=== PATIENT | male | born 1955 | race Caucasian/White ===

== ENCOUNTER 2019-12-27 02:27 | Outpatient (CLI) | payer OTHER, SELFPAY ==
[2019-12-27 23:12] LABS: SARS-CoV-2 RNA PCR Negative
== END 2019-12-27 02:28 | disposition home or self-care (01) ==
LOC: ANHCOVIDDT 02:27
PROVIDERS: PCP Internal Medicine; Visit Provider Internal Medicine Gastroenterology
DX: Z01.812 Encounter for preprocedural laboratory examination (principal); Z20.828 Contact with and (suspected) exposure to other viral communicable diseases
CPT/HCPCS: 87635; C9803; U0003

== ENCOUNTER 2019-12-30 00:52 | Day surgery (SDC) | payer OTHER, SELFPAY ==
[2019-12-24 13:51] VITALS: BMI 34.2
[2019-12-30 07:16] VITALS: BP 132/85; PULSE 89; RESP 16; TEMP 36.6; O2SAT 95; BMI 33.5
[2019-12-30] MEDS: LACTATED RINGERS 1,000 ML 150 ML IV CONT (07:32)
[2019-12-30 07:40] LABS: Glucose Point of Care 142 (65-105)
--- NOTE | 2019-12-30 08:06 | WPDGICN ---
Assessment and Plan Assessment and plan (1) Encounter for screening colonoscopy: Code(s): Z12.11 - Encounter for screening for malignant neoplasm of colon Status: Acute Assessment and Plan: Patient in usual state of health presents for screening colonoscopy. Appears to be at average risk further recommendations will be given after colonoscopy. GI Consult Note Consult date/time: 12/30/19 08:06 HPI: Javier Alvarez is a 64 year old male Seen in evaluation at the request of Dr. Luisito Bolton. Patient presents for neoplasia screening colonoscopy. Patient states that his current weight appetite bowel movements are normal. Patient denies any abdominal pain. He denies any blood in his stools. Family history is noncontributory. [facility] Family History Family History (Updated 07/04/17 @ 10:13 by DOCTOR UNKNOWN) Mother Diabetes mellitus Acute myocardial infarction, Onset Age: 55 Father Family history of cardiovascular disease Cerebrovascular accident Family history of Alzheimer's disease Other Hypertension Social History Social History Smoking status: Former smoker Tobacco type: cigarettes Smoking end date: 03/20/83 Alcohol intake: current Alcohol use details: HOLIDAYS Substance use: never Substance use type: does not use Living arrangements: with family Spiritual care concerns: No Meds Home Medications and Allergies Home Medications Medication Instructions Recorded Confirmed Type atorvastatin 40 mg PO DAILY 12/24/19 12/24/19 History hydrocodone-acetaminophen 1 tablet PO PRN PRN 12/24/19 12/24/19 History ketorolac 10 mg PO PRN PRN 12/24/19 12/24/19 History metformin 1,000 mg PO BID 12/24/19 12/24/19 History nitroglycerin 0.4 mg SUBLINGUAL PRN PRN 12/24/19 12/24/19 History omeprazole 20 mg PO DAILY 12/24/19 12/24/19 History semaglutide [Ozempic] 1 mg SUBCUT WEEKLY 12/24/19 12/24/19 History aspirin [Adult Low Dose Aspirin] 81 mg PO DAILY 12/30/19 12/30/19 History Allergies Allergy/AdvReac Type Severity Reaction Status Date / Time ibuprofen Allergy Unknown Gastrointestinal Verified 12/30/19 07:15 Upset Vital Signs Vital Signs - 24 hr 12/30/19 07:16 Temperature 97.8 F Pulse Rate 89 Respiratory Rate 16 Blood Pressure 132/85 Pulse Oximetry 95 Exam Narrative: Exam Narrative: Physical exam reveals patient to be alert. Vital signs stable. HEENT exam unremarkable. Lungs are clear to auscultation and percussion. Heart is without murmur or extra sounds. Abdominal exam bowel sounds are present soft nontender with no organomegaly. Digital external Rectal exam is normal.
--- NOTE | 2019-12-30 08:17 | WPDANESEPPF ---
Anes - Initial Pre Proc Eval Procedure: Operation Date: 12/30/19 08:30 Proposed Procedures p Screening Colonoscopy - Malachi Kim MD Date/Time: 12/30/19 08:17 Surgeon: Malachi Kim MD Pre Op Diagnosis: Neoplasm Screening Patient Data Age: 64 Gender: M Height: 5 ft 8 in Weight: 100 kg Last Vital Signs Temp 36.6 C 12/30/19 07:16 Pulse 89 12/30/19 07:16 Resp 16 12/30/19 07:16 BP 132/85 12/30/19 07:16 Pulse Ox 95 12/30/19 07:16 Allergies Allergy/AdvReac Type Severity Reaction Status Date / Time ibuprofen Allergy Unknown Gastrointestinal Verified 12/30/19 07:15 Upset Home Medications Medication Instructions Recorded Confirmed Type atorvastatin 40 mg PO DAILY 12/24/19 12/24/19 History hydrocodone-acetaminophen 1 tablet PO PRN PRN 12/24/19 12/24/19 History ketorolac 10 mg PO PRN PRN 12/24/19 12/24/19 History metformin 1,000 mg PO BID 12/24/19 12/24/19 History nitroglycerin 0.4 mg SUBLINGUAL PRN PRN 12/24/19 12/24/19 History omeprazole 20 mg PO DAILY 12/24/19 12/24/19 History semaglutide [Ozempic] 1 mg SUBCUT WEEKLY 12/24/19 12/24/19 History aspirin [Adult Low Dose Aspirin] 81 mg PO DAILY 12/30/19 12/30/19 History Laboratory Tests 12/30/19 07:28 POC Capillary Glucose 142 mg/dl H mg/dl (65-105) Patient hx anesthesia problems: none Family hx anesthesia problems: none [facility] Past Medical History Medical History (Updated 12/30/19 @ 08:18 by Rihcard Hernandez MD) CAD (coronary artery disease) Chronic pain Diabetes H/O acute myocardial infarction RE (obstructive sleep apnea) Family History Family History Mother Diabetes mellitus Acute myocardial infarction, Onset Age: 55 Father Family history of cardiovascular disease Cerebrovascular accident Family history of Alzheimer's disease Other Hypertension Social History Social History Smoking status: Former smoker Tobacco type: cigarettes Smoking end date: 03/20/83 Alcohol intake: current Alcohol use details: HOLIDAYS Substance use: never Substance use type: does not use Living arrangements: with family Spiritual care concerns: No Anes - Eval Final PreProcedure Day of Procedure 12/30/19 08:17 Patient weight: obese Heart: regular rate and rhythm Lungs: clear to auscultation Airway: Mallampati scale class II Neurological: alert and oriented Last oral intake: >/= 8 hours ASA classification: III Emergent: no Anesthetic plan: proceed Anesthesia type and monitoring: general GIVS and standard monitoring Informed Consent: The patient's anesthetic plan and its attendant risks and benefits were discussed with the patient/family/POA. Questions were solicited and answers provided to the satisfaction of the patient/family/POA.
--- NOTE | 2019-12-30 08:37 | WPDGICN ---
GI Consult Note Consult date/time: 12/30/19 08:37 HPI: Javier Alvarez is a 64 year old male Seen in evaluation at the request of Dr. Luisito Bolton. Patient presents for screening colonoscopy. Patient states his current weight appetite bowel movements are normal PMFSH Past Medical History Medical History (Updated 12/30/19 @ 08:18 by Richard Hernandez MD) CAD (coronary artery disease) Chronic pain Diabetes H/O acute myocardial infarction RE (obstructive sleep apnea) Family History Family History Mother Diabetes mellitus Acute myocardial infarction, Onset Age: 55 Father Family history of cardiovascular disease Cerebrovascular accident Family history of Alzheimer's disease Other Hypertension Social History Social History Smoking status: Former smoker Tobacco type: cigarettes Smoking end date: 03/20/83 Alcohol intake: current Alcohol use details: H[place]YS Substance use: never Substance use type: does not use Living arrangements: with family Spiritual care concerns: No Meds Home Medications and Allergies Home Medications Medication Instructions Recorded Confirmed Type atorvastatin 40 mg PO DAILY 12/24/19 12/24/19 History hydrocodone-acetaminophen 1 tablet PO PRN PRN 12/24/19 12/24/19 History ketorolac 10 mg PO PRN PRN 12/24/19 12/24/19 History metformin 1,000 mg PO BID 12/24/19 12/24/19 History nitroglycerin 0.4 mg SUBLINGUAL PRN PRN 12/24/19 12/24/19 History omeprazole 20 mg PO DAILY 12/24/19 12/24/19 History semaglutide [Ozempic] 1 mg SUBCUT WEEKLY 12/24/19 12/24/19 History aspirin [Adult Low Dose Aspirin] 81 mg PO DAILY 12/30/19 12/30/19 History Allergies Allergy/AdvReac Type Severity Reaction Status Date / Time ibuprofen Allergy Unknown Gastrointestinal Verified 12/30/19 07:15 Upset Vital Signs Vital Signs - 24 hr 12/30/19 07:16 Temperature 97.8 F Pulse Rate 89 Respiratory Rate 16 Blood Pressure 132/85 Pulse Oximetry 95
[2019-12-30 09:03] VITALS: BP 111/70; PULSE 78; RESP 16; O2SAT 95
[2019-12-30 09:13] VITALS: BP 105/75; PULSE 78; RESP 20; O2SAT 95
== END 2019-12-30 09:30 | disposition home or self-care (01) ==
PROVIDERS: PCP Internal Medicine; Visit Provider Internal Medicine Gastroenterology
PROC: 0DJD8ZZ Inspection of Lower Intestinal Tract, Via Natural or Artificial Opening Endoscopic (ICD-10-PCS; CPT 45378; principal; 2019-12-30 08:30)
DX: Z12.11 Encounter for screening for malignant neoplasm of colon (principal); D12.3 Benign neoplasm of transverse colon; D12.4 Benign neoplasm of descending colon; K57.30 Diverticulosis of large intestine without perforation or abscess without bleeding; K64.8 Other hemorrhoids; I25.10 Atherosclerotic heart disease of native coronary artery without angina pectoris; E11.9 Type 2 diabetes mellitus without complications; G47.33 Obstructive sleep apnea (adult) (pediatric); I25.2 Old myocardial infarction; G89.29 Other chronic pain; Z87.891 Personal history of nicotine dependence; Z79.84 Long term (current) use of oral hypoglycemic drugs; Z79.82 Long term (current) use of aspirin; E66.9 Obesity, unspecified; Z68.33 Body mass index [BMI] 33.0-33.9, adult
CPT/HCPCS: 45385; 88305; J2704; J7120

== ENCOUNTER 2020-07-04 06:19 | Emergency (ER) | payer OTHER, SELFPAY ==
--- NOTE | ~2020-07-04 | CT_ITS ---
EXAMINATION: CT abdomen pelvis w con DATE: 07/04/2020 07:56 INDICATION: Abdominal pain TECHNIQUE: Computed tomography (CT) of the abdomen and pelvis was performed with 100 mL Omnipaque-350 intravenous contrast. Automated exposure control and iterative reconstruction technique were employe d. The dose-length product was 1034.19 mGy-cm. COMPARISON: None FINDINGS: Mild dependent atelectasis in the bilateral lower lobes. Heart size normal. No pericardial or pleural effusion. Atherosclerotic coronary artery calcifications. There are few hepatic splenic calcificatio ns consistent with old granulomatous disease. Gallbladder, pancreas, bilateral adrenal glands and rig ht kidney are normal. 4-5 mm stone in the mid left ureter resulting in mild left hydroureteronephrosi s and asymmetric moderate left perinephric stranding. There is moderate colonic diverticulosis with a sigmoid predominance. There is no adjacent inflammatory change to suggest diverticulitis. No bowel o bstruction. Small bilateral fat-containing inguinal hernias, left larger than right. Bladder is santhosh l. Mild prostatomegaly. No free intraperitoneal gas or fluid. No pathologically enlarged abdominal or pelvic lymphadenopathy. Postoperative changes at the right groin likely related to prior vascular ac cess. Mild upper lumbar levocurvature. Moderate thoracolumbar spondylosis. Moderate right and mild le ft hip osteoarthritis. IMPRESSION: 1. At least partially obstructing 4-5 mm left ureteral stone with mild left hydroureteronephrosis. Reviewed, dictated and finalized at location A. IMPRESSION: 1. At least partially obstructing 4-5 mm left ureteral stone with mild left hyd roureteronephrosis.
[2020-07-04 06:23] VITALS: BP 171/82; PULSE 62; RESP 20; TEMP 36.5; O2SAT 100
[2020-07-04 06:39] VITALS: BP 138/87; PULSE 89; RESP 18; TEMP 36.5; O2SAT 97
--- NOTE | 2020-07-04 06:41 | ED.GENADULT ---
HPI - General Adult General Chief complaint: Abdominal Pain <Tripp Alford MD - Last Filed: 07/04/20 06:46> Stated complaint: stomach pain <Tripp Alford MD - Last Filed: 07/04/20 06:46> Time Seen by Provider: 07/04/20 06:46 <Tripp Alford MD - Last Filed: 07/04/20 06:46> History of Present Illness HPI narrative: Patient is a 64-year-old gentleman who presents the emergency department with chief complaint of abdominal pain. Patient reports that around 2:30 in the morning he started having pain states he is also had episodes of nausea and vomiting with this as well. Patient states that it is worse in the lower quadrants of his abdomen. Patient reports that he has vomited around 5 times <Tripp Alford MD - Last Filed: 07/04/20 06:46> Related Data Home medications: Home Medications Medication Instructions Recorded Confirmed atorvastatin 40 mg PO DAILY 12/24/19 12/24/19 hydrocodone-acetaminophen 1 tablet PO PRN PRN 12/24/19 12/24/19 ketorolac 10 mg PO PRN PRN 12/24/19 12/24/19 metformin 1,000 mg PO BID 12/24/19 12/24/19 nitroglycerin 0.4 mg SUBLINGUAL PRN PRN 12/24/19 12/24/19 omeprazole 20 mg PO DAILY 12/24/19 12/24/19 semaglutide [Ozempic] 1 mg SUBCUT WEEKLY 12/24/19 12/24/19 aspirin [Adult Low Dose Aspirin] 81 mg PO DAILY 12/30/19 12/30/19 <Tripp Alford MD - Last Filed: 07/04/20 06:46> Allergies/adverse reactions: Allergies Allergy/AdvReac Type Severity Reaction Status Date / Time ibuprofen Allergy Unknown Gastrointestinal Verified 12/30/19 07:15 Upset <Tripp Alford MD - Last Filed: 07/04/20 06:46> Review of Systems Review of Systems: Narrative: A 10 system review of systems was completed on the patient and is negative except for what is stated in the HPI. Nursing and ancillary documentation was reviewed. <Tripp Alford MD - Last Filed: 07/04/20 06:46> PMFSH Past Medical History Medical History: Medical History CAD (coronary artery disease) Chronic pain Diabetes H/O acute myocardial infarction RE (obstructive sleep apnea) <Tripp Alford MD - Last Filed: 07/04/20 06:46> Family History Family History: Family History Mother Diabetes mellitus Acute myocardial infarction, Onset Age: 55 Father Family history of cardiovascular disease Cerebrovascular accident Family history of Alzheimer's disease Other Hypertension <Tripp Alford MD - Last Filed: 07/04/20 06:46> Social History Social History: Social History Smoking status: Former smoker Tobacco type: cigarettes Smoking end date: 03/20/83 Alcohol intake: current Substance use: never Substance use type: does not use Spiritual care concerns: No <Tripp Alford MD - Last Filed: 07/04/20 06:46> Exam Narrative: Exam Narrative: GENERAL: Well-appearing, well-nourished, and in no acute distress. HEAD: Normocephalic, atraumatic. EYES: PERRLA and EOMI. ENT: Nares clear, no rhinorrhea or epistaxis. Mucous membranes moist. NECK: Supple. CHEST: Clear to auscultation. No respiratory distress. HEART: Regular rate and rhythm. No murmur heard. Normal peripheral pulses. ABDOMEN: Soft, tender to palpation worse in the left lower quadrant, nondistended, normal active bowel sounds. EXTREMITIES: Normal range of motion. No edema. SKIN: Warm, dry, no rash. NEURO: No focal deficits. Alert and oriented x3. PSYCH: Normal mood and affect. <Tripp Alford MD - Last Filed: 07/04/20 06:46> Course Vital Signs Vital signs: Vital Signs Temperature 36.5 C 07/04/20 06:23 Pulse Rate 62 07/04/20 06:23 Respiratory Rate 20 07/04/20 06:23 Blood Pressure 171/82 H 06/18
[2020-07-04] MEDS: SODIUM CHLORIDE 0.9% IV 1,000 ML 999 ML IV CONT (06:47)
[2020-07-04] MEDS: MORPHINE SULFATE (*CRX) 4 MG/ML INJ IV PUSH ×2 (06:47→08:52)
[2020-07-04] MEDS: ONDANSETRON INJ 4 MG/2 ML VIAL IV PUSH (06:58)
[2020-07-04 07:02] LABS: Basophils Percent Auto 0.2 % (0.2-1.2); Eosinophils Percent Auto 0.1 % (0-4.4); Hematocrit 48.4 % (42.0-52.0); Hemoglobin 16.6 g/dL (14.0-18.0); Immature Granulocyte Absolute 0.05 K/mm3 (0.00-0.031); Immature Granulocyte Percent A 0.6 % (0-0.5); Lymphocytes Absolute Auto 1.07 K/mm3 (0.9-3.2); Lymphocytes Percent Auto 12.2 % (18.3-44.2); Mean Corpuscular HGB Conc 34.3 g/dl (32-36); Mean Corpuscular Hemoglobin 29.9 pg (26-34); Mean Corpuscular Volume 87.2 fl (80-100); Mean Platelet Volume 8.8 fl (7.4-10.4); Monocytes Absolute Auto 0.4 K/mm3 (0.1-0.6); Neutrophils Absolute Auto 7.2 K/mm3 (1.3-6.7); Neutrophils Percent Auto 81.9 % (45.5-73.1); Platelet Count Result 233 k/mm3 (150-375); Red Blood Count 5.55 M/mm3 (4.6-6.20); Red Cell Distribution Width 12.9 % (11.5-14.5); White Blood Count 8.8 K/mm3 (4.5-10.0)
[2020-07-04 07:10] LABS: Lactic Acid Reflex 2.6 mmol/L (0.7-2.1)
[2020-07-04 07:11] LABS: Alanine Aminotransferase 33 U/L (4-50); Albumin Level 4.4 g/dL (3.5-5.1); Alkaline Phosphatase 64 U/L (38-126); Anion Gap 11 mmol/L (8-16); Aspartate Amino Transferase 34 U/L (17-59); Bilirubin,Total 0.8 mg/dL (0.2-1.3); Blood Urea Nitrogen 16 mg/dL (9-20); Calcium 9.4 mg/dL (8.4-10.2); Carbon Dioxide 22 mmol/L (22-30); Chloride 104 mmol/L (98-107); Estimated CRCL calculation 85 ml/min; Estimated Glomerular Filt Rate > 60; Glucose 252 mg/dL (75-110); Lipase 88 U/L (23-300); Sodium 137 mmol/L (137-145)
[2020-07-04 07:12] LABS: INR 0.9; Prothrombin Time 12.9 Seconds (11.1-14.7)
--- NOTE | 2020-07-04 07:25 | PC.NURSE ---
PT STATES UNABLE TO VOID AT THIS TIME. INFORMED NEED FOR SAMPLE. VERBALIZES UNDERSTANDING. WILL CONTINUE TO MONITOR
[2020-07-04 08:41] LABS: Add Urine Microscopic? YES; Appearance Urine Cloudy (Clear); Bilirubin Urine Negative (Negative); Blood Urine 3+ (Negative); Color Urine Yellow (Yellow); Glucose Urine UA 3+ mg/dL (Negative); Ketones Urine 1+ mg/dL (Negative); Leukocyte Esterase Ur Negative LEU/UL (Negative); Mucus Urine Rare /lpf; Nitrate Urine Negative (Negative); Protein Urine 1+ mg/dL (Negative); RBC Urine >75 /hpf (0-2); Specific Grav Ur 1.028 (1.001-1.035); Squamous Epithelial Cell Urine Rare /hpf (Few); Urobilinogen Urine Negative mg/dL (<2.0); WBC Urine 0-3 /hpf
[2020-07-04 09:59] LABS: Reflex Lactic Acid Yes or No Add Lactic
[2020-07-04] MEDS: TAMSULOSIN HCL 0.4 MG CAPSULE PO (10:08)
[2020-07-04] MEDS: KETOROLAC 15 MG/ML VIAL (*BKC) IV PUSH (10:09)
[2020-07-04 10:20] VITALS: BP 154/64; PULSE 64; RESP 20; O2SAT 100
== END 2020-07-04 10:20 | disposition home or self-care (01) ==
PROVIDERS: Emergency Medicine; Emergency Provider Emergency Medicine; PCP Internal Medicine
DX: N13.2 Hydronephrosis with renal and ureteral calculous obstruction (principal); Z79.82 Long term (current) use of aspirin; I25.10 Atherosclerotic heart disease of native coronary artery without angina pectoris; E11.9 Type 2 diabetes mellitus without complications; I25.2 Old myocardial infarction; G47.33 Obstructive sleep apnea (adult) (pediatric); Z87.891 Personal history of nicotine dependence; Z79.84 Long term (current) use of oral hypoglycemic drugs
CPT/HCPCS: 36415; 74177; 80053; 81001; 83605; 83690; 85025; 85610; 85730; 96361; 96374; 96375; 96376; 99284; A9270; J1885; J2270; J2405; J7030; Q9967

== ENCOUNTER 2022-04-14 17:27 | Outpatient (CLI) | payer MEDICARE, OTHER, SELFPAY ==
--- NOTE | ~2022-04-14 | XR_ITS ---
XR chest 2V 04/14/2022 17:44 Indication: Leg pain Procedure: 2 view chest Comparison: 05/20/2017 Findings: Cardiomegaly. No focal air space disease, pulmonary edema, pleural effusion or suspected pn eumothorax. Calcified granuloma right midlung. There is diffuse idiopathic skeletal hyperostosis (DIS H) of the thoracic spine. There is thoracic scoliosis. Impression: 1: No acute cardiopulmonary disease. Reviewed, dictated and finalized at location A. AGENT Impression: 1: No acute cardiopulmonary disease.
== END 2022-04-14 17:28 | disposition home or self-care (01) ==
PROVIDERS: PCP Physician Assistant Medical; Visit Provider Physician Assistant Medical
DX: R61 Generalized hyperhidrosis (principal)
CPT/HCPCS: 71046

== ENCOUNTER 2022-04-25 00:17 | Day surgery (SDC) | payer MEDICARE, OTHER, SELFPAY ==
[2022-04-07 14:34] VITALS: BMI 31.2
[2022-04-25 09:47] VITALS: BP 132/83; PULSE 84; RESP 18; TEMP 36.2; O2SAT 96
[2022-04-25] MEDS: LACTATED RINGERS 1,000 ML 150 ML IV CONT (09:59)
[2022-04-25 10:07] LABS: Glucose Point of Care 214 mg/dl (65-105)
--- NOTE | 2022-04-25 10:12 | PM.HPGS ---
History of Present Illness History of Present Illness Consent: Risks, benefits, and alternatives have been discussed and questions answered. Patient agrees to proceed with procedure. Chief complaint: neoplasm screening Narrative: aJvier Alvarez is a 66 year old male Presents for screening colonoscopy. Patient has a prior history of a large colon polyp removed from the colon 2019. He presents today for surveillance colonoscopy. Patient's current weight appetite and bowel movements are normal. Patient denies abdominal pain. He has had no bleeding. Family history noncontributory. Review of Systems Review of Systems: Review of systems noncontributory. ON LICENSE OF [facility] Past Medical History Medical History (Updated 03/31/22 @ 17:14 by Olesya Molina PA-C) Appendicitis CAD (coronary artery disease) Chronic pain Chronic pain of right knee Diabetes H/O acute myocardial infarction History of acute myocardial infarction of anterolateral wall RE (obstructive sleep apnea) Vitamin B12 deficiency Surgical History Surgical History (Updated 03/31/22 @ 14:01 by Blanquita Mcdaniel MA) H/O knee surgery Hx of appendectomy Family History Family History Mother Diabetes mellitus Acute myocardial infarction, Onset Age: 55 Father Family history of cardiovascular disease Cerebrovascular accident Family history of Alzheimer's disease Other Hypertension Social History Social History (Updated 03/31/22 @ 13:54 by Blanquita Mcdaniel MA) Smoking packs per day: 2 Smoking cigarettes per day: 40.0 Years smoked: 12 Smoking pack-years: 24.00 Smoking status: Former smoker Tobacco type: cigarettes Smoking end date: 03/20/83 Alcohol intake: current Alcohol use details: [place]IDAYS - rarely Substance use: never Substance use type: does not use Lack of Transportation: YES Lack of Food: Never True Current Housing: I Have Housing Concerned About Future Housing: No Difficulty Paying Gas/Electric Bills: No Difficulty Paying for Meds: No Currently Unemployed: No Difficulty w/ Childcare or Family Care: No Living arrangements: with family Occupation/Education: occupation Gender identity (if verbalized by the patient): Male Spiritual care concerns: No Meds Home Medications and Allergies Home Medications Medication Instructions Recorded Confirmed Type nitroglycerin 0.4 mg sublingual 0.4 mg sublingual PRN PRN Chest 12/24/19 04/07/22 History tablet Pain aspirin 81 mg tablet 81 mg PO DAILY 12/30/19 04/07/22 History metformin 500 mg tablet,extended 1,000 mg PO BID #360 tabs 03/31/22 04/07/22 Rx release 24 hr omeprazole 20 mg capsule,delayed 20 mg PO DAILY #90 caps 03/31/22 04/07/22 Rx release hydrocodone 5 mg-acetaminophen 325 1 tablet PO Q4H PRN Pain #45 tabs 04/01/22 04/07/22 Rx mg tablet ketorolac 10 mg tablet 10 mg PO BID PRN pain #20 tabs 04/06/22 04/07/22 Rx Lactobacills gasseri-Bifidobac 1 cap PO DAILY 04/07/22 04/07/22 History bifidum,longum 1.5 billion cell capsule ([employer]) atorvastatin 40 mg tablet 40 mg PO QPM 04/07/22 04/07/22 History glimepiride 1 mg tablet 1 mg PO BID #180 tabs 04/15/22 04/25/22 Rx Allergies Allergy/AdvReac Type Severity Reaction Status Date / Time No Known Allergies Allergy Verified 04/25/22 09:44 Vital Signs Vital Signs - 24 hr 04/25/22 09:47 Temperature 97.1 F L Pulse Rate 84 Respiratory Rate 18 Blood Pressure 132/83 Pulse Oximetry 96 Oxygen Delivery Room Air Exam Narrative: Physical exam reveals patient to be alert. Vital signs stable. HEENT exam is unremarkable. Patient is anicteric. Lungs are clear to auscultation and percussion. Heart is without murmur or extra sounds. Abdomen bowel sounds present soft nontender with no organomegaly. Digital external rectal exam is normal. Assessment and Plan Assessment and plan (1) E
--- NOTE | 2022-04-25 10:16 | WPDANESEPPF ---
Anes - Initial Pre Proc Eval Procedure: Operation Date: 04/25/22 11:00 Proposed Procedures p Screening Colonoscopy - Malachi Kim MD Date/Time: 04/25/22 10:16 Surgeon: Malachi Kim MD Pre Op Diagnosis: neoplasm screening Patient Data Age: 66 Gender: M Height: 1.75 m Weight: 95.7 kg Last Vital Signs Temp 36.2 C L 04/25/22 09:47 Pulse 84 04/25/22 09:47 Resp 18 04/25/22 09:47 BP 132/83 04/25/22 09:47 Pulse Ox 96 04/25/22 09:47 O2 Del Method Room Air 04/25/22 09:47 Allergies Allergy/AdvReac Type Severity Reaction Status Date / Time No Known Allergies Allergy Verified 04/25/22 09:44 Home Medications Medication Instructions Recorded Confirmed Type nitroglycerin 0.4 mg sublingual 0.4 mg sublingual PRN PRN Chest 12/24/19 04/07/22 History tablet Pain aspirin 81 mg tablet 81 mg PO DAILY 12/30/19 04/07/22 History metformin 500 mg tablet,extended 1,000 mg PO BID #360 tabs 03/31/22 04/07/22 Rx release 24 hr omeprazole 20 mg capsule,delayed 20 mg PO DAILY #90 caps 03/31/22 04/07/22 Rx release hydrocodone 5 mg-acetaminophen 325 1 tablet PO Q4H PRN Pain #45 tabs 04/01/22 04/07/22 Rx mg tablet ketorolac 10 mg tablet 10 mg PO BID PRN pain #20 tabs 04/06/22 04/07/22 Rx Lactobacills gasseri-Bifidobac 1 cap PO DAILY 04/07/22 04/07/22 History bifidum,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 [facility] Past Medical History Medical History Appendicitis CAD (coronary artery disease) Chronic pain Chronic pain of right knee Diabetes H/O acute myocardial infarction History of acute myocardial infarction of anterolateral wall RE (obstructive sleep apnea) Vitamin B12 deficiency Surgical History Surgical History H/O knee surgery Hx of appendectomy Family History Family History Mother Diabetes mellitus Acute myocardial infarction, Onset Age: 55 Father Family history of cardiovascular disease Cerebrovascular accident Family history of Alzheimer's disease Other Hypertension Social History Social History Smoking packs per day: 2 Smoking cigarettes per day: 40.0 Years smoked: 12 Smoking pack-years: 24.00 Smoking status: Former smoker Tobacco type: cigarettes Smoking end date: 03/20/83 Alcohol intake: current Alcohol use details: [place] - rarely Substance use: never Substance use type: does not use Lack of Transportation: YES Lack of Food: Never True Current Housing: I Have Housing Concerned About Future Housing: No Difficulty Paying Gas/Electric Bills: No Difficulty Paying for Meds: No Currently Unemployed: No Difficulty w/ Childcare or Family Care: No Living arrangements: with family Occupation/Education: occupation Gender identity (if verbalized by the patient): Male Spiritual care concerns: No Anes - Eval Final PreProcedure Day of Procedure 04/25/22 10:16 Patient weight: obese Heart: regular rate and rhythm Lungs: clear to auscultation Airway: Mallampati scale class II Neurological: alert and oriented Last oral intake: >/= 8 hours ASA classification: III Emergent: no Anesthetic plan: proceed Anesthesia type and monitoring: general GIVS and standard monitoring Results Review: All pre-operative results and documents have been reviewed as p
[2022-04-25] MEDS: SIMETHICONE ORAL SUSPENSION 20 MG/0.3 ML 30 ML BOTTLE 0.6 ML IRRIGATION (10:55)
[2022-04-25 11:02] VITALS: BP 113/81; PULSE 72; RESP 20; O2SAT 95
[2022-04-25 11:12] VITALS: BP 117/77; PULSE 72; RESP 20; O2SAT 95
[2022-04-25 11:22] VITALS: BP 117/74; PULSE 71; RESP 21; O2SAT 95
== END 2022-04-25 11:29 | disposition home or self-care (01) ==
PROVIDERS: PCP Physician Assistant Medical; Visit Provider Internal Medicine Gastroenterology
PROC: 0DJD8ZZ Inspection of Lower Intestinal Tract, Via Natural or Artificial Opening Endoscopic (ICD-10-PCS; CPT 45378; principal; 2022-04-25 11:00)
DX: Z12.11 Encounter for screening for malignant neoplasm of colon (principal); D12.5 Benign neoplasm of sigmoid colon; K64.8 Other hemorrhoids; K57.30 Diverticulosis of large intestine without perforation or abscess without bleeding; I25.10 Atherosclerotic heart disease of native coronary artery without angina pectoris; E11.9 Type 2 diabetes mellitus without complications; G47.33 Obstructive sleep apnea (adult) (pediatric); I25.2 Old myocardial infarction; G89.29 Other chronic pain; Z79.891 Long term (current) use of opiate analgesic; Z87.891 Personal history of nicotine dependence; E66.9 Obesity, unspecified; Z68.31 Body mass index [BMI] 31.0-31.9, adult; Z79.82 Long term (current) use of aspirin; Z79.84 Long term (current) use of oral hypoglycemic drugs
CPT/HCPCS: 45385; 82948; 88305; J2704; J7120

== ENCOUNTER 2024-04-09 06:07 | Day surgery (SDC) | payer MEDICARE, OTHER, SELFPAY ==
[2024-04-09] VITALS (11 sets, daily range): BP systolic 86–157; BP diastolic 62–98; PULSE 66–96; RESP 14–20; TEMP 36.3–36.5; O2SAT 96–100
--- NOTE | ~2024-04-09 | XR_ITS ---
EXAMINATION: XR retrograde pyelo w/stent LT DATE: 04/09/2024 16:24 INDICATION: Left ureteral stone extraction TECHNIQUE: 4 fluoroscopic images of the abdomen and pelvis were obtained during procedure performed jeanna Syed. Radiologist was not present for the imaging or procedure. The amount of fluoroscopy jaymie e used during this procedure was 0.7 minutes. COMPARISON: CT dated 04/09/2024 FINDINGS: No stones project over the region of the left kidney on the brush material preparer image. Subsequent image demonstrate s a wire advanced into the left ureter with persistent stone alongside the wire at the left ureterove sicular junction. Subsequent images demonstrate placement of a left intraureteral stent with proximal loop in the left renal pelvis and in the bladder. There is a small amount of contrast material in th e mildly dilated left renal collecting system. The stone is no longer visualized on the final images and has likely been extracted. IMPRESSION: 1. Left intraureteral stent placement in expected position post likely extraction of a stone at the l eft ureterovesicular junction. Correlate with procedure note for further detail. Reviewed, dictated and finalized at location A. WARE RELIABILITY ENGINEER IMPRESSION: 1. Left intraureteral stent placement in expected position post likely extracti on of a stone at the left ureterovesicular junction. Correlate with procedure n ote for further detail.
--- NOTE | ~2024-04-09 | CT_ITS ---
EXAMINATION: CT abdomen pelvis wo con DATE: 04/09/2024 08:30 INDICATION: Flank pain. Urinary symptoms. TECHNIQUE: Computed tomography (CT) of the abdomen and pelvis was performed without intravenous contr ast. Automated exposure control and iterative reconstruction technique were employed. The dose-length product was 442.40 mGy-cm. COMPARISON: CT abdomen and pelvis 07/04/2020 FINDINGS: The visualized portions of the lung bases demonstrate mild atelectasis. Calcified right brent g nodules and calcified right hilar lymph nodes are consistent with old granulomatous disease. No ple ural effusion. The heart size is normal. There are coronary artery calcifications. No pericardial eff usion. Calcifications in the liver and spleen are consistent with old granulomatous disease. The gall bladder, pancreas, adrenal glands, and right kidney are normal. There is moderate left hydronephrosis and hydroureter. There is an 8 mm stone at left ureterovesicular junction. There is edema in the lef t perinephric space. The prostate is moderately enlarged. There is diverticulosis of the colon withou t evidence of diverticulitis. There are no dilated loops of bowel. The appendix is not visualized. Th ere are no pathologically enlarged lymph nodes. There is no free intraperitoneal fluid. There are leonidas ateral inguinal hernias containing fat. There is moderate thoracic and lumbar spondylosis. IMPRESSION: 1. 8 mm stone at left ureterovesicular junction with moderate left hydronephrosis and hydroureter. Reviewed, dictated and finalized at location B. ATING SCREED OPERATOR IMPRESSION: 1. 8 mm stone at left ureterovesicular junction with moderate left hydronephros is and hydroureter.
[2024-04-09] MEDS: KETOROLAC 15 MG/ML VIAL (*BKC) IV PUSH ×2 (06:22→16:20)
[2024-04-09] MEDS: ONDANSETRON INJ 4 MG/2 ML VIAL IV PUSH ×2 (06:23→15:20)
[2024-04-09] MEDS: SODIUM CHLORIDE 0.9% IV 1,000 ML 999 ML IV CONT (06:23)
--- NOTE | 2024-04-09 06:26 | PC.NURSE ---
Pt attempting to give urine sample at this time, pt given urinal and states he will hit call light when he is able to provide a sample
--- NOTE | 2024-04-09 06:29 | ED.GENADULT ---
HPI - General Adult General Chief complaint: Urogenital-Male Stated complaint: I think I am trying to pass a kidney stone Time Seen by Provider: 04/09/24 06:14 History of Present Illness HPI narrative: Patient is 68-year-old male who presents to the emergency department this evening complaining of left-sided groin pain radiating to his left flank. Patient states that last night before he went to bed he had a headache which is not unusual for him as he does get migraines and he has some migraine medications. Patient states that he took that medication which resolved his headache and he went to sleep when he woke up this morning he noticed the pain. Patient admits that he has had kidney stones in the past and this feels similar. States that when he tries to urinate he feels as though he is and able to fully empty his bladder, and is only able to pee a small amount at a time. Denies any nausea or vomiting. No additional symptoms or concerns at this time. Related Data Home Medications ?Medication ?Instructions ?Recorded ?Confirmed ?Last Taken ?Type nitroglycerin 0.4 mg sublingual 0.4 mg sublingual PRN PRN Chest 12/24/19 03/11/24 Unknown History tablet Pain aspirin 81 mg tablet 81 mg PO DAILY 12/30/19 03/11/24 04/24/22 History Lactobacills gasseri-Bifidobac 1 cap PO DAILY 04/07/22 03/11/24 04/24/22 History bifidum,longum 1.5 billion cell capsule (IGG) tamsulosin 0.4 mg capsule 0.4 mg PO DAILY PRN kidney stones 03/11/24 03/11/24 Unknown History Allergies Allergy/AdvReac Type Severity Reaction Status Date / Time No Known Allergies Allergy Verified 04/09/24 06:11 Review of Systems Review of Systems: All systems are reviewed and are negative unless stated otherwise in the HPI. COUNTS INCLUDE 234 BEDS AT THE [facility] Past Medical History Medical History Degenerative joint disease (DJD) of hip Right hip pain SK (seborrheic keratosis) History of peptic ulcer disease Migraine ketorolac prn Arthritis knees, hips, hands Vitamin B12 deficiency Appendicitis History of acute myocardial infarction of anterolateral wall Chronic pain of right knee Chronic pain RE (obstructive sleep apnea) H/O acute myocardial infarction Diabetes CAD (coronary artery disease) Surgical History Surgical History Hx of appendectomy H/O knee surgery Family History Family History Mother Diabetes mellitus Acute myocardial infarction, Onset Age: 55 Father Family history of cardiovascular disease Cerebrovascular accident Family history of Alzheimer's disease Other Hypertension Social History Social History Smoking packs per day: 2 Smoking cigarettes per day: 40.0 Years smoked: 12 Smoking pack-years: 24.00 Smoking status: Former smoker Tobacco type: cigarettes Smoking end date: 03/20/83 Alcohol intake: current Alcohol use details: HOLIDAYS - rarely Substance use: never Substance use type: does not use Lack of Transportation: YES Lack of Food: Never True Current Housing: I Have Housing Concerned About Future Housing: No Difficulty Paying Gas/Electric Bills: No Difficulty Paying for Meds: No Currently Unemployed: No Difficulty w/ Childcare or Family Care: No Living arrangements: with family Occupation/Education: occupation Gender identity (if verbalized by the patient): Male Spiritual care concerns: No Exam Narrative: General: Alert, awake, afebrile, in no acute distress. HEENT: PERRL, no rhinorrhea, no post nasal drip, oropharynx clear. Neck: Trachea midline, no JVD, no lymphadenopathy. Cardiovascular: Regular rate and rhythm, no murmurs, rubs or gallops, no peripheral edema. Respiratory: Clear to auscultation bilaterally, no tachypnea, no wheezing, no rhonchi, no rubs, no respiratory distress. Abdomen: Soft, nontender, nondistended, no rebound, no guarding, no peritoneal signs. Musculoskeletal: No joint swelling or deformity, normal muscle tone. Skin: No rashes or petechia, no signs of infection. Psychiatric: Alert and oriented, normal behavior and judgment for situation. Neurological: Alert and oriented to person, place, and time. Follows all commands. No focal deficits, speech is clear and fluent. Course Vital Signs Vital signs: Vital Signs Pulse Rate 80 04/09/24 07:31 Respiratory Rate 16 04/09/24 07:31 Blood Pressure 157/82 H 04/09/24 07:31 Pulse Oximetry 98 04/09/24 07:31 Temperature 97.4 F L 04/09/24 16:27 Pulse Rate 68 04/09/24 18:09 Respiratory Rate 16 04/09/24 18:09 Blood Pressure 147/73 H 04/09/24 18:09 Pulse Oximetry 100 04/09/24 17:10 Oxygen Delivery Room Air 04/09/24 17:10 Oxygen Flow Rate 8 04/09/24 16:55 Medical Decision Making MDM Narrative Medical decision making narrative: The patient was evaluated by myself in the emergency department. History is obtained from patient who is an independent historian and physical exam was performed. External medical records were reviewed at this time. IV was established and pertinent tests were ordered. Patient was administered 1 L IV fluid bolus with normal saline, 15 mg of IV Toradol and 4 mg IV Zofran. Laboratory results obtained revealing no acute process. Urinalysis revealed 1+ ketones 3+ glucose. Imaging studies obtained included a CT abdomen and pelvis without IV contrast was obtained at this time inability interpreted by me review: 1. An 8 mm stone at left ureterovesicular junction with moderate left hydronephrosis and hydroureter. Differential diagnosis considerations include musculoskeletal strain, pyelonephritis, nephrolithiasis. Comorbidities impacting this visit include history of kidney stones. I have evaluated and discussed social determinants of health with the patient that could potentially impact subsequent diagnosis and treatment plans. Patient was taken by urology for an XR retrograde pyelo w/stent LT in stable condition. Vital Signs Vital Signs: Vital Signs Pulse Rate 80 04/09/24 07:31 Respiratory Rate 16 04/09/24 07:31 Blood Pressure 157/82 H 04/09/24 07:31 Pulse Oximetry 98 04/09/24 07:31 Temperature 97.4 F L 04/09/24 16:27 Pulse Rate 68 04/09/24 18:09 Respiratory Rate 16 04/09/24 18:09 Blood Pressure 147/73 H 04/09/24 18:09 Pulse Oximetry 100 04/09/24 17:10 Oxygen Delivery Room Air 04/09/24 17:10 Oxygen Flow Rate 8 04/09/24 16:55 Lab Data 04/09/24 06:22 04/09/24 06:22 Labs: Lab Results 04/09/24 04/09/24 04/09/24 Range/Units 06:22 07:32 13:06 WBC 9.5 (4.5-10.0) K/mm3 RBC 5.54 (4.6-6.20) M/mm3 Hgb 16.3 (14.0-18.0) g/dL Hct 48.7 (42.0-52.0) % MCV 87.9 (80-100) fl MCH 29.4 (26-34) pg MCHC 33.5 (32-36) g/dl RDW 13.1 (11.5-14.5) % Plt Count 232 (150-375) k/mm3 MPV 9.1 (7.4-10.4) fl Immature Gran % (Auto) 0.4 (0-0.5) % Neut % (Auto) 73.9 H (45.5-73.1) % Lymph % (Auto) 17.4 L (18.3-44.2) % [place] % (Auto) 6.0 (2.6-8.5) % Eos % (Auto) 2.0 (0-4.4) % Baso % (Auto) 0.3 (0.2-1.2) % Lymph # (Auto) 1.65 (0.9-3.2) K/mm3 [place] # (Auto) 0.6 (0.1-0.6) K/mm3 Eos # (Auto) 0.2 (0-0.3) K/mm3 Baso # (Auto) 0.0 (0.0-0.1) K/mm3 Abs Immat Gran (auto) 0.04 H (0.00-0.031) K/mm3 Absolute Neuts (auto) 7.0 H (1.3-6.7) K/mm3 Absolute Nucleated RBC 0.000 (0.0-0.012) K/mm3 Nucleated RBC % 0.0 (0.0-0.2) % Sodium 136 L (137-145) mmol/L Potassium 4.1 (3.4-5.0) mmol/L Chloride 100 (98-107) mmol/L Carbon Dioxide 24 (22-30) mmol/L Anion Gap 12 (4-12) mmol/L BUN 22 H (9-20) mg/dL Creatinine 0.81 (0.7-1.3) mg/dL Estim Creat Clear Calc 85 ml/min Estimated GFR > 60 (59 - ) Glucose 206 H (65-110) mg/dL POC Capillary Glucose 137 H (65-105) mg/dl Calcium 9.1 (8.4-10.2) mg/dL Magnesium 1.3 L (1.6-2.3) mg/dL Total Bilirubin 1.1 (0.2-1.3) mg/dL AST 22 (17-59) U/L ALT 19 (6-50) U/L Alkaline Phosphatase 67 (38-126) U/L Total Protein 7.0 (6.3-8.2) g/dL Albumin 4.3 (3.5-5.1) g/dL Urine Color Yellow (Yellow) Urine Appearance Clear (Clear) Urine pH 5.0 (5.0-9.0) Ur Specific [place] 1.028 (1.001-1.035) Urine Protein Trace (Negative) mg/dL Urine Glucose (UA) 3+ H (Negative) mg/dL Urine Ketones 1+ H (Negative) mg/dL Ur Blood (Man) Negative (Negative) Urine Nitrate Negative (Negative) Urine Bilirubin Negative (Negative) Urine Urobilinogen 0.2 (<2.0) mg/dL Leukocyte Esterase Rfl Negative (Negative) ANTHONY/UL Urine RBC 0-2 (0-2) /hpf Urine WBC 0-5 (0-3) /hpf Ur Squamous Epith Cells None seen (Few) /hpf Urine Bacteria None seen /hpf Urine Casts 0-2 04/09/24 Range/Units 16:47 WBC (4.5-10.0) K/mm3 RBC (4.6-6.20) M/mm3 Hgb (14.0-18.0) g/dL Hct (42.0-52.0) % MCV (80-100) fl MCH (26-34) pg MCHC (32-36) g/dl RDW (11.5-14.5) % Plt Count (150-375) k/mm3 MPV (7.4-10.4) fl Immature Gran % (Auto) (0-0.5) % Neut % (Auto) (45.5-73.1) % Lymph % (Auto) (18.3-44.2) % [place] % (Auto) (2.6-8.5) % Eos % (Auto) (0-4.4) % Baso % (Auto) (0.2-1.2) % Lymph # (Auto) (0.9-3.2) K/mm3 [place] # (Auto) (0.1-0.6) K/mm3 Eos # (Auto) (0-0.3) K/mm3 Baso # (Auto) (0.0-0.1) K/mm3 Abs Immat Gran (auto) (0.00-0.031) K/mm3 Absolute Neuts (auto) (1.3-6.7) K/mm3 Absolute Nucleated RBC (0.0-0.012) K/mm3 Nucleated RBC % (0.0-0.2) % Sodium (137-145) mmol/L Potassium (3.4-5.0) mmol/L Chloride (98-107) mmol/L Carbon Dioxide (22-30) mmol/L Anion Gap (4-12) mmol/L BUN (9-20) mg/dL Creatinine (0.7-1.3) mg/dL Estim Creat Clear Calc ml/min Estimated GFR (59 - ) Glucose (65-110) mg/dL POC Capillary Glucose 147 H (65-105) mg/dl Calcium (8.4-10.2) mg/dL Magnesium (1.6-2.3) mg/dL Total Bilirubin (0.2-1.3) mg/dL AST (17-59) U/L ALT (6-50) U/L Alkaline Phosphatase (38-126) U/L Total Protein (6.3-8.2) g/dL Albumin (3.5-5.1) g/dL Urine Color (Yellow) Urine Appearance (Clear) Urine pH (5.0-9.0) Ur Specific [place] (1.001-1.035) Urine Protein (Negative) mg/dL Urine Glucose (UA) (Negative) mg/dL Urine Ketones (Negative) mg/dL Ur Blood (Man) (Negative) Urine Nitrate (Negative) Urine Bilirubin (Negative) Urine Urobilinogen (<2.0) mg/dL Leukocyte Esterase Rfl (Negative) ANTHONY/UL Urine RBC (0-2) /hpf Urine WBC (0-3) /hpf Ur Squamous Epith Cells (Few) /hpf Urine Bacteria /hpf Urine Casts Discharge Plan Discharge Clinical Impression: Acute left flank pain, Kidney stone Patient Disposition: Still a Patient Condition: Stable
[2024-04-09 07:25] LABS: Basophils Percent Auto 0.3 % (0.2-1.2); Eosinophils Absolute Auto 0.2 K/mm3 (0-0.3); Hematocrit 48.7 % (42.0-52.0); Hemoglobin 16.3 g/dL (14.0-18.0); Immature Granulocyte Absolute 0.04 K/mm3 (0.00-0.031); Immature Granulocyte Percent A 0.4 % (0-0.5); Lymphocytes Absolute Auto 1.65 K/mm3 (0.9-3.2); Lymphocytes Percent Auto 17.4 % (18.3-44.2); Mean Corpuscular HGB Conc 33.5 g/dl (32-36); Mean Corpuscular Hemoglobin 29.4 pg (26-34); Mean Corpuscular Volume 87.9 fl (80-100); Mean Platelet Volume 9.1 fl (7.4-10.4); Monocytes Absolute Auto 0.6 K/mm3 (0.1-0.6); Neutrophils Percent Auto 73.9 % (45.5-73.1); Platelet Count Result 232 k/mm3 (150-375); Red Blood Count 5.54 M/mm3 (4.6-6.20); Red Cell Distribution Width 13.1 % (11.5-14.5); White Blood Count 9.5 K/mm3 (4.5-10.0)
[2024-04-09 07:37] LABS: Magnesium 1.3 mg/dL (1.6-2.3)
[2024-04-09 07:43] LABS: Add Urine Microscopic? YES; Appearance Urine Clear (Clear); Bacteria Urine None Seen /hpf; Bilirubin Urine Negative (Negative); Blood Urine Negative (Negative); Color Urine Yellow (Yellow); Glucose Urine UA 3+ mg/dL (Negative); Ketones Urine 1+ mg/dL (Negative); Leukocyte Esterase Ur Negative LEU/UL (Negative); Nitrate Urine Negative (Negative); Non Pathogenic Casts 0-2; Protein Urine Trace mg/dL (Negative); RBC Urine 0-2 /hpf (0-2); Specific Grav Ur 1.028 (1.001-1.035); Squamous Epithelial Cell Urine None Seen /hpf (Few); Urobilinogen Urine 0.2 mg/dL (<2.0); WBC Urine 0-5 /hpf (0-3)
[2024-04-09 07:44] LABS: Alanine Aminotransferase 19 U/L (6-50); Albumin Level 4.3 g/dL (3.5-5.1); Alkaline Phosphatase 67 U/L (38-126); Anion Gap 12 mmol/L (4-12); Aspartate Amino Transferase 22 U/L (17-59); Bilirubin,Total 1.1 mg/dL (0.2-1.3); Blood Urea Nitrogen 22 mg/dL (9-20); Calcium 9.1 mg/dL (8.4-10.2); Carbon Dioxide 24 mmol/L (22-30); Chloride 100 mmol/L (98-107); Estimated CRCL calculation 85 ml/min; Estimated Glomerular Filt Rate > 60; Glucose 206 mg/dL (65-110); Potassium 4.1 mmol/L (3.4-5.0); Sodium 136 mmol/L (137-145)
--- NOTE | 2024-04-09 07:53 | PC.NURSE ---
0700: Assumed care of pt. Pt resting on stretcher
[2024-04-09] MEDS: HYDROmorphone HCL INJ (*CRX) 1 MG/ML SYR 0.5 MG IV PUSH (08:05)
--- NOTE | 2024-04-09 08:11 | PC.NURSE ---
Pt c/o pain that he rates 7. Dr. Schaeffer informed, pt medicated & cardiac technologist applied
--- NOTE | 2024-04-09 10:44 | ECG_ITS ---
Test Date: 2024-04-09 10:53:48 Measurements Intervals [place] Rate: 66 P: 239 NV: 108 QRS: 74 QRSD: 82 T: 48 QT: 360 QTc: 378 Interpretive Statements ECTOPIC ATRIAL RHYTHM WITH SHORT NV INTERVAL No previous ECG available for comparison Electronically Signed On 04-11-2024 12:37:52 [employer] by Naresh Hsieh M.D.
--- NOTE | 2024-04-09 10:47 | PC.NURSE ---
Preop called requesting EKG for pt. Pt clothes removed for surgery
--- NOTE | 2024-04-09 11:06 | P.HP_ITS ---
H&P: HPI History of Present Illness Date/Time: 04/09/24 11:06 Chief Complaint: Flank pain Narrative: Patient is 68-year-old male with history of hypertension, diabetes, CAD, history of kidney stone present ED with a chief complaint of left flank pain, and left groin pain. Patient had a sudden onset abdomen pain and left groin radiating to left flank yesterday evening. Patient has severe abdomen pain. Patient had a similar pain when patient suffered from kidney stone patient has urinary urgency frequency. Patient passed a small amount urinate. Patient denies chest pain headache, palpitation, nausea vomiting. Patient came to ED for evaluation treatment. Upon arrival in the ED, patient was afebrile, blood pressure stable. CT scan was done in the ED that showed 8 mm stone at left ureterovesicular junction with moderate left hydronephrosis and hydroureter. Chemistry showed hyponatremia 136, id BUN creatinine ratio 22/0.81. Urinalysis unremarkable In the ED, patient received fluid resuscitation normal saline 1 L, tolerate no 50 mg and Zofran. ER physician also consulted urologist. Urologist plans cystoscope. We admit patient for further patient management PMFSH Past Medical History Medical History Degenerative joint disease (DJD) of hip Right hip pain SK (seborrheic keratosis) History of peptic ulcer disease Migraine ketorolac prn Arthritis knees, hips, hands Vitamin B12 deficiency Appendicitis History of acute myocardial infarction of anterolateral wall Chronic pain of right knee Chronic pain RE (obstructive sleep apnea) H/O acute myocardial infarction Diabetes CAD (coronary artery disease) Surgical History Surgical History Hx of appendectomy H/O knee surgery Family History Family History Mother Diabetes mellitus Acute myocardial infarction, Onset Age: 55 Father Family history of cardiovascular disease Cerebrovascular accident Family history of Alzheimer's disease Other Hypertension Social History Social History Smoking packs per day: 2 Smoking cigarettes per day: 40.0 Years smoked: 12 Smoking pack-years: 24.00 Smoking status: Former smoker Tobacco type: cigarettes Smoking end date: 03/20/83 Alcohol intake: current Alcohol use details: HOLIDAYS - rarely Substance use: never Substance use type: does not use Lack of Transportation: YES Lack of Food: Never True Current Housing: I Have Housing Concerned About Future Housing: No Difficulty Paying Gas/Electric Bills: No Difficulty Paying for Meds: No Currently Unemployed: No Difficulty w/ Childcare or Family Care: No Living arrangements: with family Occupation/Education: occupation Gender identity (if verbalized by the patient): Male Spiritual care concerns: No Meds Home Medications and Allergies Home Medications ?Medication ?Instructions ?Recorded ?Confirmed ?Type nitroglycerin 0.4 mg sublingual 0.4 mg sublingual PRN PRN Chest 12/24/19 03/11/24 History tablet Pain aspirin 81 mg tablet 81 mg PO DAILY 12/30/19 03/11/24 History Lactobacills gasseri-Bifidobac 1 cap PO DAILY 04/07/22 03/11/24 History bifidum,longum 1.5 billion cell capsule ([employer]) atorvastatin 40 mg tablet 40 mg PO QPM #90 tabs 03/11/24 03/11/24 Rx celecoxib 200 mg capsule (Celebrex) 200 mg PO DAILY #90 caps 03/11/24 03/11/24 Rx cyclobenzaprine 5 mg tablet 2.5 - 10 mg (0.5 - 2 x 5 mg) PO 03/11/24 03/11/24 Rx QHS PRN muscle spasm #90 tabs hydrocodone 5 mg-acetaminophen 325 1 tablet PO Q4H PRN Pain #45 tabs 03/11/24 03/11/24 Rx mg tablet ketoconazole 2 % topical cream 1 applic topical BID #60 grams 03/11/24 03/11/24 Rx ketorolac 10 mg tablet 10 mg PO BID PRN migraine headache 03/11/24 03/11/24 Rx #20 tabs metformin 500 mg tablet,extended 1,000 mg (2 x 500 mg) PO BID #360 03/11/24 03/11/24 Rx release 24 hr tabs omeprazole 20 mg capsule,delayed 20 mg PO DAILY #90 caps 03/11/24 03/11/24 Rx release tamsulosin 0.4 mg capsule 0.4 mg PO DAILY PRN kidney stones 03/11/24 03/11/24 History dapagliflozin propanediol 5 mg 5 mg PO DAILY #90 tabs 04/08/24 Rx tablet (Farxiga) Allergies Allergy/AdvReac Type Severity Reaction Status Date / Time No Known Allergies Allergy Verified 04/09/24 06:11 Vital Signs Vital Signs - 24 hr 04/09/24 07:31 04/09/24 08:12 Temperature 97.7 F Pulse Rate 80 81 Respiratory Rate 16 16 Blood Pressure 157/82 H 136/82 Pulse Oximetry 98 96 H&P: Results Labs Labs: Short CBC 04/09/24 Range/Units 06:22 WBC 9.5 (4.5-10.0) K/mm3 Hgb 16.3 (14.0-18.0) g/dL Hct 48.7 (42.0-52.0) % Plt Count 232 (150-375) k/mm3 BMP 04/09/24 06:22 Sodium 136 L Potassium 4.1 Chloride 100 Carbon Dioxide 24 BUN 22 H Creatinine 0.81 Glucose 206 H Calcium 9.1 Liver Function 04/09/24 Range/Units 06:22 Total Bilirubin 1.1 (0.2-1.3) mg/dL AST 22 (17-59) U/L ALT 19 (6-50) U/L Alkaline Phosphatase 67 (38-126) U/L Albumin 4.3 (3.5-5.1) g/dL Urine 04/09/24 Range/Units 07:32 Urine Color Yellow (Yellow) Urine Appearance Clear (Clear) Urine pH 5.0 (5.0-9.0) Ur Specific [place] 1.028 (1.001-1.035) Urine Protein Trace (Negative) mg/dL Urine Glucose (UA) 3+ H (Negative) mg/dL Assessment and Plan Assessment and plan (1) Kidney stone on left side: Code(s): N20.0 - Calculus of kidney Status: Acute (2) Diabetes: Code(s): E11.9 - Type 2 diabetes mellitus without complications Status: Acute (3) CAD (coronary artery disease): Code(s): I25.10 - Atherosclerotic heart disease of [place] coronary artery without angina pectoris Status: Acute Plan Obstructive left knee kidney stone Patient has severe abdomen pain, showed 8 mm stone at left ureterovesicular junction with moderate left hydronephrosis and hydroureter. Urinalysis unremarkable Keep patient p.o. Optimize pain management Urologist plans cystoscope Dehydration and hyponatremia Chemistry showed hyponatremia 136, id BUN creatinine ratio 22/0.81. Received normal saline bolus Continue normal saline IV CAD Patient denies chest pain Hold oral medications during p.o. Type 2 diabetes Hold oral medication during p.o. Start insulin sliding scale a.c. and q.h.s. Hypoglycemia protocol is initiated
--- NOTE | 2024-04-09 12:54 | WPDURCON ---
Assessment and Plan Assessment and plan (1) Left ureteral stone: Code(s): N20.1 - Calculus of ureter Status: Acute Assessment and Plan: cystoscopy, left ureteroscopy with stone extraction, possible laser lithotripsy, retrograde pyelogram and stent placement Urology Consult Note HPI Date Seen: 04/09/24 Requesting Physician: Wilner Syed MD Primary Care Provider: Olesya Molina PA-C Consult Narrative Narrative: Javier Alvarez is a 68 year old male who spontaneously passed a single ureteral stone in the remote past. He presents to the emergency department with intractable and progressively severe left flank pain radiating to his left lower quadrant. It has been associated with nausea and vomiting but no fevers chills or gross hematuria. Imaging demonstrates a obstructing 8 mm left distal ureteral calculus. After discussion of options he has elected for an endoscopic intervention. He is aware the risk including, not limited to, need for additional procedures, ureteral injury and/or edema with need for ureteral stent. Review of Systems Review of Systems: All systems reviewed & are unremarkable except as noted in HPI and below PMFSH Past Medical History Medical History Degenerative joint disease (DJD) of hip Right hip pain SK (seborrheic keratosis) History of peptic ulcer disease Migraine ketorolac prn Arthritis knees, hips, hands Vitamin B12 deficiency Appendicitis History of acute myocardial infarction of anterolateral wall Chronic pain of right knee Chronic pain RE (obstructive sleep apnea) H/O acute myocardial infarction Diabetes CAD (coronary artery disease) Surgical History Surgical History Hx of appendectomy H/O knee surgery Family History Family History Mother Diabetes mellitus Acute myocardial infarction, Onset Age: 55 Father Family history of cardiovascular disease Cerebrovascular accident Family history of Alzheimer's disease Other Hypertension Social History Social History Smoking packs per day: 2 Smoking cigarettes per day: 40.0 Years smoked: 12 Smoking pack-years: 24.00 Smoking status: Former smoker Tobacco type: cigarettes Smoking end date: 03/20/83 Alcohol intake: current Alcohol use details: HOLIDAYS - rarely Substance use: never Substance use type: does not use Lack of Transportation: YES Lack of Food: Never True Current Housing: I Have Housing Concerned About Future Housing: No Difficulty Paying Gas/Electric Bills: No Difficulty Paying for Meds: No Currently Unemployed: No Difficulty w/ Childcare or Family Care: No Living arrangements: with family Occupation/Education: occupation Gender identity (if verbalized by the patient): Male Spiritual care concerns: No Meds Home Medications and Allergies Home Medications ?Medication ?Instructions ?Recorded ?Confirmed ?Type nitroglycerin 0.4 mg sublingual 0.4 mg sublingual PRN PRN Chest 12/24/19 03/11/24 History tablet Pain aspirin 81 mg tablet 81 mg PO DAILY 12/30/19 03/11/24 History Lactobacills gasseri-Bifidobac 1 cap PO DAILY 04/07/22 03/11/24 History bifidum,longum 1.5 billion cell capsule ([employer])) atorvastatin 40 mg tablet 40 mg PO QPM #90 tabs 03/11/24 03/11/24 Rx celecoxib 200 mg capsule (Celebrex) 200 mg PO DAILY #90 caps 03/11/24 03/11/24 Rx cyclobenzaprine 5 mg tablet 2.5 - 10 mg (0.5 - 2 x 5 mg) PO 03/11/24 03/11/24 Rx QHS PRN muscle spasm #90 tabs hydrocodone 5 mg-acetaminophen 325 1 tablet PO Q4H PRN Pain #45 tabs 03/11/24 03/11/24 Rx mg tablet ketoconazole 2 % topical cream 1 applic topical BID #60 grams 03/11/24 03/11/24 Rx ketorolac 10 mg tablet 10 mg PO BID PRN migraine headache 03/11/24 03/11/24 Rx #20 tabs metformin 500 mg tablet,extended 1,000 mg (2 x 500 mg) PO BID #360 03/11/24 03/11/24 Rx release 24 hr tabs omeprazole 20 mg capsule,delayed 20 mg PO DAILY #90 caps 03/11/24 03/11/24 Rx release tamsulosin 0.4 mg capsule 0.4 mg PO DAILY PRN kidney stones 03/11/24 03/11/24 History dapagliflozin propanediol 5 mg 5 mg PO DAILY #90 tabs 04/08/24 Rx tablet (Farxiga) Allergies Allergy/AdvReac Type Severity Reaction Status Date / Time No Known Allergies Allergy Verified 04/09/24 06:11 Vital Signs Vital Signs - 24 hr 04/09/24 07:31 04/09/24 08:12 Temperature 97.7 F Pulse Rate 80 81 Respiratory Rate 16 16 Blood Pressure 157/82 H 136/82 Pulse Oximetry 98 96 Exam Const: General: no acute distress Resp: Effort & Inspection: normal respiratory effort GI: Inspection: non-distended GI Palp: No abdominal tenderness and No Guarding due to palpation present (GI) Auscultation: normal bowel sounds Results Labs 04/09/24 06:22 04/09/24 06:22 Labs: Short CBC 04/09/24 Range/Units 06:22 WBC 9.5 (4.5-10.0) K/mm3 Hgb 16.3 (14.0-18.0) g/dL Hct 48.7 (42.0-52.0) % Plt Count 232 (150-375) k/mm3 BMP 04/09/24 06:22 Sodium 136 L Potassium 4.1 Chloride 100 Carbon Dioxide 24 BUN 22 H Creatinine 0.81 Glucose 206 H Calcium 9.1 Liver Function 04/09/24 Range/Units 06:22 Total Bilirubin 1.1 (0.2-1.3) mg/dL AST 22 (17-59) U/L ALT 19 (6-50) U/L Alkaline Phosphatase 67 (38-126) U/L Albumin 4.3 (3.5-5.1) g/dL Urine 04/09/24 Range/Units 07:32 Urine Color Yellow (Yellow) Urine Appearance Clear (Clear) Urine pH 5.0 (5.0-9.0) Ur Specific [place] 1.028 (1.001-1.035) Urine Protein Trace (Negative) mg/dL Urine Glucose (UA) 3+ H (Negative) mg/dL
--- NOTE | 2024-04-09 12:57 | WPDHPUPDATE1 ---
History and Physical Update Update Date/Time: 04/09/24 12:57 History and Physical has been reviewed, including an updated exam of the patient. There are NO changes in the patient's condition. Risks, benefits, and alternatives have been discussed and questions answered. Patient agrees to proceed with procedure.
[2024-04-09 13:10] LABS: Glucose Point of Care 137 mg/dl (65-105)
[2024-04-09] MEDS: fentaNYL CITRATE INJ (*CRX) 100 MCG/2 ML VIAL 25 MCG IV PUSH ×2 (14:00→14:18)
--- NOTE | 2024-04-09 14:01 | WPDANESEPPF ---
Anes - Initial Pre Proc Eval Procedure: Operation Date: 04/09/24 15:30 Proposed Procedures p Cystoscopy, Left Ureteroscopy, Possible Left Retrograde Pyelogram, Possible Holmium Laser Lithotripsy, Possible Left Ureteral Stent Placement - Wilner Syed MD Date/Time: 04/09/24 14:01 Surgeon: Wilner Syed MD Pre Op Diagnosis: Ureteral Stone Patient Data Age: 68 Gender: M Height: 1.73 m Weight: 93.2 kg Last Vital Signs Temp 36.3 C L 04/09/24 12:14 Pulse 66 04/09/24 12:14 Resp 18 04/09/24 12:14 BP 156/97 H 04/09/24 12:14 Pulse Ox 99 04/09/24 12:14 O2 Del Method Room Air 04/09/24 12:14 Allergies Allergy/AdvReac Type Severity Reaction Status Date / Time No Known Allergies Allergy Verified 04/09/24 06:11 Home Medications ?Medication ?Instructions ?Recorded ?Confirmed ?Type nitroglycerin 0.4 mg sublingual 0.4 mg sublingual PRN PRN Chest 12/24/19 03/11/24 History tablet Pain aspirin 81 mg tablet 81 mg PO DAILY 12/30/19 03/11/24 History Lactobacills gasseri-Bifidobac 1 cap PO DAILY 04/07/22 03/11/24 History bifidum,longum 1.5 billion cell capsule (WorkTouch) atorvastatin 40 mg tablet 40 mg PO QPM #90 tabs 03/11/24 03/11/24 Rx celecoxib 200 mg capsule (Celebrex) 200 mg PO DAILY #90 caps 03/11/24 03/11/24 Rx cyclobenzaprine 5 mg tablet 2.5 - 10 mg (0.5 - 2 x 5 mg) PO 03/11/24 03/11/24 Rx QHS PRN muscle spasm #90 tabs hydrocodone 5 mg-acetaminophen 325 1 tablet PO Q4H PRN Pain #45 tabs 03/11/24 03/11/24 Rx mg tablet ketoconazole 2 % topical cream 1 applic topical BID #60 grams 03/11/24 03/11/24 Rx ketorolac 10 mg tablet 10 mg PO BID PRN migraine headache 03/11/24 03/11/24 Rx #20 tabs metformin 500 mg tablet,extended 1,000 mg (2 x 500 mg) PO BID #360 03/11/24 03/11/24 Rx release 24 hr tabs omeprazole 20 mg capsule,delayed 20 mg PO DAILY #90 caps 03/11/24 03/11/24 Rx release tamsulosin 0.4 mg capsule 0.4 mg PO DAILY PRN kidney stones 03/11/24 03/11/24 History dapagliflozin propanediol 5 mg 5 mg PO DAILY #90 tabs 04/08/24 Rx tablet (Farxiga) Laboratory Tests 04/09/24 04/09/24 04/09/24 06:22 07:32 13:06 WBC 9.5 K/mm3 (4.5-10.0) RBC 5.54 M/mm3 (4.6-6.20) Hgb 16.3 g/dL (14.0-18.0) Hct 48.7 % (42.0-52.0) MCV 87.9 fl (80-100) MCH 29.4 pg (26-34) MCHC 33.5 g/dl (32-36) RDW 13.1 % (11.5-14.5) Plt Count 232 k/mm3 (150-375) MPV 9.1 fl (7.4-10.4) Immature Gran % (Auto) 0.4 % (0-0.5) Neut % (Auto) 73.9 H % (45.5-73.1) Lymph % (Auto) 17.4 L % (18.3-44.2) [place] % (Auto) 6.0 % (2.6-8.5) Eos % (Auto) 2.0 % (0-4.4) Baso % (Auto) 0.3 % (0.2-1.2) Lymph # (Auto) 1.65 K/mm3 (0.9-3.2) [place] # (Auto) 0.6 K/mm3 (0.1-0.6) Eos # (Auto) 0.2 K/mm3 (0-0.3) Baso # (Auto) 0.0 K/mm3 (0.0-0.1) Abs Immat Gran (auto) 0.04 H K/mm3 (0.00-0.031) Absolute Neuts (auto) 7.0 H K/mm3 (1.3-6.7) Absolute Nucleated RBC 0.000 K/mm3 (0.0-0.012) Nucleated RBC % 0.0 % (0.0-0.2) Sodium 136 L mmol/L (137-145) Potassium 4.1 mmol/L (3.4-5.0) Chloride 100 mmol/L (98-107) Carbon Dioxide 24 mmol/L (22-30) Anion Gap 12 mmol/L (4-12) BUN 22 H mg/dL (9-20) Creatinine 0.81 mg/dL (0.7-1.3) Estim Creat Clear Calc 85 ml/min Estimated GFR > 60 (59 - ) Glucose 206 H mg/dL (65-110) POC Capillary Glucose 137 H mg/dl (65-105) Calcium 9.1 mg/dL (8.4-10.2) Magnesium 1.3 L mg/dL (1.6-2.3) Total Bilirubin 1.1 mg/dL (0.2-1.3) AST 22 U/L (17-59) ALT 19 U/L (6-50) Alkaline Phosphatase 67 U/L (38-126) Total Protein 7.0 g/dL (6.3-8.2) Albumin 4.3 g/dL (3.5-5.1) Urine Color Yellow (Yellow) Urine Appearance Clear (Clear) Urine pH 5.0 (5.0-9.0) Ur Specific [place] 1.028 (1.001-1.035) Urine Protein Trace mg/dL (Negative) Urine Glucose (UA) 3+ H mg/dL (Negative) Urine Ketones 1+ H mg/dL (Negative) Ur Blood (Man) Negative (Negative) Urine Nitrate Negative (Negative) Urine Bilirubin Negative (Negative) Urine Urobilinogen 0.2 mg/dL (<2.0) Leukocyte Esterase Rfl Negative ANTHONY/UL (Negative) Urine RBC 0-2 /hpf (0-2) Urine WBC 0-5 /hpf (0-3) Ur Squamous Epith Cells None seen /hpf (Few) Urine Bacteria None seen /hpf Urine Casts 0-2 Patient hx anesthesia problems: none Family hx anesthesia problems: none Results Review: All pre-operative results and documents have been reviewed as part of the pre-operative evaluation. [facility], [facility] Past Medical History Medical History Degenerative joint disease (DJD) of hip Right hip pain SK (seborrheic keratosis) History of peptic ulcer disease Migraine ketorolac prn Arthritis knees, hips, hands Vitamin B12 deficiency Appendicitis History of acute myocardial infarction of anterolateral wall Chronic pain of right knee Chronic pain RE (obstructive sleep apnea) H/O acute myocardial infarction Diabetes CAD (coronary artery disease) Surgical History Surgical History Hx of appendectomy H/O knee surgery Family History Family History Mother Diabetes mellitus Acute myocardial infarction, Onset Age: 55 Father Family history of cardiovascular disease Cerebrovascular accident Family history of Alzheimer's disease Other Hypertension Social History Social History Smoking packs per day: 2 Smoking cigarettes per day: 40.0 Years smoked: 12 Smoking pack-years: 24.00 Smoking status: Former smoker Tobacco type: cigarettes Smoking end date: 03/20/83 Alcohol intake: current Alcohol use details: HOLIDAYS - rarely Substance use: never Substance use type: does not use Lack of Transportation: YES Lack of Food: Never True Current Housing: I Have Housing Concerned About Future Housing: No Difficulty Paying Gas/Electric Bills: No Difficulty Paying for Meds: No Currently Unemployed: No Difficulty w/ Childcare or Family Care: No Living arrangements: with family Occupation/Education: occupation Gender identity (if verbalized by the patient): Male Spiritual care concerns: No Anes - Eval Final PreProcedure Day of Procedure 04/09/24 14:01 Patient weight: obese Heart: regular rate and rhythm Lungs: clear to auscultation Airway: Mallampati scale class II Neurological: alert and oriented Last oral intake: >/= 8 hours ASA classification: III Emergent: no Anesthetic plan: proceed Anesthesia type and monitoring: general ETT and standard monitoring Results Review: All pre-operative results and documents have been reviewed as part of the pre-operative evaluation. Informed Consent: The patient's anesthetic plan and its attendant risks and benefits were discussed with the patient/family/POA. Questions were solicited and answers provided to the satisfaction of the patient/family/POA.
[2024-04-09] MEDS: LIDOCAINE 2% GEL UROJET 10 ML PKG MUCOUS MEM (15:32)
[2024-04-09] MEDS: ceFAZolin 2 GM/D5W 50 ML 2 GM/50 ML BAG IVPB (15:32)
--- NOTE | 2024-04-09 16:21 | W.PM.PROC2 ---
Procedure Note - Detailed Date of Procedure 04/09/24 Pre-op Diagnosis Left Ureteral Stone Post-op Diagnosis Same Procedure Performed Cystoscopy, left ureteroscopy with laser lithotripsy, stone extraction, retrograde pyelogram and stent placement Surgeon Wilner Syed MD Anesthesia General Description of Procedure Patient brought the operative suite was prepped draped in routine sterile fashion while in dorsal lithotomy position after the uneventful induction of a general LMA anesthetic. Cystoscopy was undertaken with a 21 F rigid cystoscope. He has moderate lateral lobe hyperplasia of the prostate with a 2.5 cm prostatic urethra. There was no significant median lobe. Bladder mucosa is normal without hyperemia. There was no intravesical foreign body or neoplasm. A 0.035 in glidewire was advanced into his left renal pelvis and the distal ureter was dilated with an 8 F 10 F dilator. Ureteroscopy was undertaken with a short tapered semi-rigid ureteral scope. His 8 mm stone is fractured with a 200 micron Pravin laser fiber. All pieces were extracted with a 1.9 F disposable stone basket. Because of the extent of this procedure and he moderate ureteral edema I opted to place a left ureteral stent. A 4.8 F variable length stent was positioned with the proximal coil in the collecting system and distal coil in the bladder. Scopes wires removed he was taken to the recovery room in good condition Estimated Blood Loss 0 Drains Yes Packing Yes Pathology Yes Complications No immediate complications Disposition PACU
[2024-04-09] MEDS: LACTATED RINGERS 1,000 ML 30 ML IV CONT ×2 (16:27→16:30)
[2024-04-09 16:49] LABS: Glucose Point of Care 147 mg/dl (65-105)
--- NOTE | 2024-04-09 17:02 | SUR.PHASEI ---
1625: RN called Dr. Parikh and told him no need to see this patient since he was being discharged home from surgery.
--- OUTSIDE RECORDS SUMMARY | 2024-04-11 15:21 | XMS_ITS | Clinical Summary ---
Author Organization [facility] Address [address] [place] [address]. [place], [place] [id number] [place] [id number] Care Team Providers Care Transport Manager Name Role Phone Unavailable Primary Care Provider Unavailabl e Social History Tobacco Use Types Packs/Day Years Used Date Smoking Tobacco: Never Assessed Sex and Gender Information Value Date Recorded Sex Assigned at Not on file Legal Sex Male 4:53 PM CDT Gender Identity Not on file Sexual Orientation Not on file Last Filed Vital Signs Vital Sign Reading Time Taken Comments Blood Pressure 124/80 01/29/2012 9:31 AM CHARGE MANAGER Pulse 110 01/29/2012 9:31 AM CHARGE MANAGER Temperature - - Respiratory Rate - - Oxygen Saturation - - Inhaled Oxygen Concentration - - Weight 98 kg (216 lb) 2011 2:53 PM CDT Height 172.7 cm (5' 8 ) 2011 2:53 PM CDT Body Mass Index 32.84 2011 2:53 PM CDT Plan of Treatment Health Maintenance Due Date Last Done Comments Colorectal Cancer Screening Colonoscopy (10 Years) 1956 Hepatitis C 1974 DTaP, Tdap and Td Vaccines ( 1 - Tdap) 12/21/1975 Zoster Vaccines (1 of 2) 2006 Pneumococcal Vaccine: 65+ Ye ars (1 of 1 - PCV) 2021 COVID-19 Vaccine ( - 2023-2 5 season) 2023 Influenza Adult (#1) 2023 RSV Immunization or 60+ Years (1 - 1-dose 75+ series) 12/21/2031 Meningococcal Vaccine Aged Out No mikayla anabell eligible based on patient's age to complete this topic RSV Immunizations Under 20 Months Aged Out No longer eligible based on patient's age to complete this topic
--- OUTSIDE RECORDS SUMMARY | 2024-04-11 15:21 | XMS_ITS | Clinical Summary ---
Author Organization [facility] [address] Address [address] [place] [address] Care Team Providers Care Computer Aided Design Drafter Name Role Phone Luisito Bolton MD Primary Care Provider [phone] Allergies No known active allergies Medications aspirin 81 mg tablet Take 1 tablet (81 mg total) by mouth daily Active HYDROcodone-jon taminophen (NORCO) 5-325 mg per tabletIndicatio ns:Pain Take 1 tablet by mouth every 4 (four) hours as needed Active metFORMIN XR (GLUCOPHAGE XR) 500 mg 24 hr tablet Take 2 tablets (1,000 mg total) by mouth 2 (two) times a day Active omeprazole (PriLOSEC) 20 mg capsule Take 1 capsule (20 mg total) by mouth daily 08/20/2018 Active OZEMPIC 1 mg/dose (2 mg/1.5 mL) pen injector once a week 07/17/2018 Active L. gasseri-B. bifidum-B longum 1.5 billion cell capsule Take 1 capsule by mouth daily Active nitroglycerin (NITROSTAT) 0.[address] 1 tablet (0.4 mg total) under the tongue every 5 (five) minutes as needed for chest pain May repeat dose q 5 min, up to 3 doses total 25 tablet 3 03/28/2019 Active atorvastatin (LIPITOR) 40 mg tablet Take 1 tablet (40 mg total) by mouth daily 90 tablet 1 02/26/2020 Active nitroglycerin (NITROSTAT) 0.[address] 1 tablet (0.4 mg total) under the tongue every 5 (five) minutes as needed for chest pain May repeat dose q 5 min, up to 3 doses total 30 tablet 2 04/29/2021 Active cyclobenzaprine (FLEXERIL) 5 mg tablet TAKE 1/2 - 2 TABLETS BY MOUTH EVERY DAY AT BEDTIME NEEDED FOR MUSCLE SPASMS 05/30/2023 Active celecoxib (CeleBREX) 200 mg capsule Take 1 capsule (200 mg total) by mouth daily 05/30/2023 Active Active Problems Problem Noted Date Diagnosed Date S/P drug eluting coronary stent placement 2023 Skin rash 10/25/2017 Candidal skin infection 10/25/2017 Diabetes mellitus type 2 in obese 06/05/[address] elevation myocardial infarction (S PACO) 06/05/2017 Coronary artery disease invo lving koi coronary artery of koi heart without angina pectoris 06/05/2017 Surgical History Surgery Date Site/Laterality Comments CORONARY ANGIOPLASTY APPENDECTOMY KNEE ARTHROSCOPY meniscus repair LAPAROSCOPIC LYSIS INTESTINAL ADHESIONS Medical History Medical History Date Comments Heart attack (HCC) Diabetes mellitus (HCC) Sleep apnea Arthritis Family History Medical History Relation Name Comments Suicide Completion Brother Dementia Father Diabetes Father Stroke Father Diabetes Mother Heart attack Mother Heart disease Mother Hypertension Mother No Known Problems Sister 1 No Known Problems Sister 2 Relation Name Status Comments Brother (Age 21) Father (Age 88) unknown CO D Mother (Age 54) Sister 1 Alive Sister 2 Alive Social History Tobacco Use Types Packs/Day Years Used Date Smoking Tobacco: Former Cigarettes Q uit: 02/05/1982 Smokeless Tobacco: Never Tobacco Cessation:Counseling Given: Not Answered Alcohol Use Standard Drinks/Week Comments No 0 (1 standard drink = 0.6 oz pur e alcohol) Personal Safety Answer Date Recorded Getting School Help Needed Not on file 05/13 Sex and Gender Information Value Date Recorded Sex Assigned at Not on file 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 Gender Identity Not on file Sexual Orientation Not on file Obstetrics History Last Filed Vital Signs Vital Sign Reading Time Taken Comments Blood Pressure 128/80 07/13/2023 8:02 AM CDT Pulse 90 07/13/2023 8:02 AM CDT Temperature 36.7 ??C (98.1 ??F) 10/25/2017 2:18 PM CD T Respiratory Rate - - Oxygen Saturation 97% 07/13/2023 8:02 AM CDT Inhaled Oxygen Concentration - - Weight 95.9 kg (211 lb 8 oz) 07/13/2023 8:02 AM CDT Height 172.7 cm (5' 8 ) 07/13/2023 8:02 AM CDT Body Mass Index 32.16 07/13/2023 8:02 AM CDT Plan of Treatment Health Maintenance Due Date Last Done Comments Albumin Creatinine Ratio, Urine 1955 Colon Cancer Screening-Colonoscopy 1956 Depression Screening 1956 Fall Risk Assessment 1956 Hemoglobin A1C 1956 Hepatitis C Screening 1956 Prostate Cancer Screening-PSA 1956 eGFR 1956 Dilated Eye Exam 1956 Foot Exam 1956 DTaP/Tdap/Td Vaccine (1 - Tdap) 12/21/1967 Hepatitis B Screening 1974 Pneumococcal vaccine 65+ (2 of 2 - PCV) 08/19/2018 08/19/2017 Abdominal Aortic Aneurysm (A AA) Screen 2021 Well Visit 65+ 2021 Lipid Panel 06/29/2023 06/28/2022, 04/20, 03/26/2020, Additional history exists Influenza Vaccine (#1) 2023 9, 11/25/2017, 05/27/2017, Additional history exists Zoster Vaccine Completed 10/16/2017, 07/19/2017 Procedures Procedure Name Priority Date/Time Associated Diagnosis Comments POCT LIPID PANEL Routine 06/28/2022 2:58 PM CDT Lipid screening from Last 3 Months or Most Recently Relevant to Health Maintenance Results * POCT lipid panel (06/28/2022 2:58 PM CDT) Cholesterol, POC 107 mg/dL HDL, POC 20 mg/dL Triglycerides, POC 238 mg/dL LDL Cholesterol POC 39 mg/dL Chol/HDL Ratio, POC 2.0 Non-HDL Cholesterol, POC 87 mg/dL Cholesterol Total, POC 107 mg/dL Capillary blood 06/28/2022 2 :58 PM CDT Robin Yu MD POINT OF CARE TEST ORDER GLEN Final Result from Last 3 Months or Most Recently Relevant to Health Maintenance Insurance MEDICARE [facility] REPL[facility] BY [facility] OPEN ACCESS [facility] MEDICARE [facility] JOSE Care Teams Computer Aided Design Drafter Relationship Specialty Start Date End Date Luisito Bolton MD [address] [place] [id number] PCP - General Internal Medicine 05/22/17
--- OUTSIDE RECORDS SUMMARY | 2024-04-11 15:21 | XMS_ITS | Referral Summary ---
Author Organization [facility] [address] Address [address] [place] [address] Care Team Providers Care Advertising Job Titles Name Role Phone Luisito Bolton MD Primary Care Provider [phone] Allergies No known active allergies Medications aspirin [...] PACO) 06/05/2017 Coronary artery disease invo lving [place]bi-[place] shoshone coronary artery of timbi[place] shoshone heart without angina pectoris 06/05/2017 Social History Tobacco Use Types Packs/Day Years [...] on file Legal Sex Male 9:58 AM GLOBAL TECHNICAL WRITER Gender Identity Not on file Sexual Orientation [...] 07/13/2023 8:02 AM CDT Plan of Treatment Not on file Procedures Procedure Name Priority Date/Time Associated Diagnosis [...] Capillary blood 06/28/2022 2 :58 PM CDT us Robin Yu MD POINT OF CARE TEST ORDER GLEN Final Result from Last 3 Months or Most Recently Relevant to Health Maintenance Insurance MEDICARE [facility] H[facility]/PPO Address: [address] [place] [address] [employer] MEDIC[employer] Care Teams Advertising Job Titles Relationship Specialty Start Date End Date Luisito Bolton MD [address] [place] [id number] PCP - General Internal Medicine 05/22/17
--- OUTSIDE RECORDS SUMMARY | 2024-04-11 18:09 | XMS_ITS | Referral Summary ---
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
--- OUTSIDE RECORDS SUMMARY | 2024-04-11 18:09 | XMS_ITS | Clinical Summary ---
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
--- OUTSIDE RECORDS SUMMARY | 2024-04-11 18:09 | XMS_ITS | Clinical Summary ---
Author Organization [facility] Address [address] [place] [address]. [place], [place] [address] [place] [address] Care Team Providers Care Patrol Sergeant Name Role Phone Unavailable Primary Care Provider [...] Comments Blood Pressure 124/80 01/29/2012 9:31 AM FLOWER POT PRESS OPERATOR Pulse 110 01/29/2012 9:31 AM FLOWER POT PRESS OPERATOR Temperature - - Respiratory Rate - - [...]
== END 2024-04-09 18:12 | disposition home or self-care (01) ==
LOC: ANHED 12:01 → ANHSURGERY 12:08
PROVIDERS: Emergency Provider Emergency Medicine; PCP Physician Assistant Medical; Visit Provider Urology
PROC: (CPT 52352; principal; 2024-04-09 15:30)
DX: N20.1 Calculus of ureter (principal); N40.0 Benign prostatic hyperplasia without lower urinary tract symptoms; E11.9 Type 2 diabetes mellitus without complications; I25.10 Atherosclerotic heart disease of native coronary artery without angina pectoris; E53.8 Deficiency of other specified B group vitamins; G47.33 Obstructive sleep apnea (adult) (pediatric); M19.042 Primary osteoarthritis, left hand; M19.041 Primary osteoarthritis, right hand; M16.0 Bilateral primary osteoarthritis of hip; M17.0 Bilateral primary osteoarthritis of knee; I25.2 Old myocardial infarction; G89.29 Other chronic pain; L82.1 Other seborrheic keratosis; E66.9 Obesity, unspecified; Z68.31 Body mass index [BMI] 31.0-31.9, adult; Z79.82 Long term (current) use of aspirin; Z79.1 Long term (current) use of non-steroidal anti-inflammatories (NSAID); Z79.891 Long term (current) use of opiate analgesic; Z79.84 Long term (current) use of oral hypoglycemic drugs; Z98.890 Other specified postprocedural states; Z87.891 Personal history of nicotine dependence; Z87.11 Personal history of peptic ulcer disease; Z82.49 Family history of ischemic heart disease and other diseases of the circulatory system
CPT/HCPCS: 52356; 36415; 74176; 74420; 80053; 81001; 82365; 82948; 83735; 85025; 88300; 93005; 96361; 96365; 96375; 96376; 99285; C1769; C2617; J0690; J1171; J1885; J2003; J2250; J2405; J2704; J3010; J7030; J7120; Q9966

== ENCOUNTER 2024-10-07 08:45 | Outpatient (RCR) | payer MEDICARE, OTHER, SELFPAY ==
--- NOTE | 2024-08-30 16:22 | OPREHPOC ---
Outpatient Therapy Plan of Care This is a Multidisciplinary Plan of Care that may contain components documented by all disciplines (PT, OT, and ST.) PT Problem 1 PT Problem #1 Knowledge Deficit PT Goal 1 Goal / Goal Update Pt will be independent in HEP Pt will verbalize understanding of diagnosis and prognosis Target Visit 10 PT Problem 2 PT Problem #2 Pain PT Goal 1 Goal / Goal Update Pt will report greatest pain level at 3/10 or less to improve ADLs and activities Target Visit 10 PT Goal 2 Goal / Goal Update Pt will report resolution of pain to return to PLOF Target Visit 20 PT Problem 3 PT Problem #3 Impaired Gait PT Goal 1 Goal / Goal Update Pt will demonstrates equal stance time and step length during ambulation without guarding Target Visit 10 PT Goal 2 Goal / Goal Update Pt will demonstrate improved erect posture in standing and walking to offload discomfort in the spine
--- NOTE | 2024-08-30 16:22 | PTOPEVAL1 ---
Assessment and note entered by Roxana Plata, PT Evaluation Information Assessment Status Evaluation Diagnosis radiculopathy lumbar region ICD-10 Condition Codes (PT) Radiculopathy, lumbar region M54.16,Pain in left hip M25.552,Difficulty Walking R26.2,Abnormalities of gait and mobility R26.9 Subjective Information Pt reports all his life his ankles hurt and would swell if on them. Multiple years ago got exercises for ankles and stopped rolling ankles but still had pain. Then went to doctor and started wearing ankles brace about 3 weeks ago, then the left side of the leg began having increased pain. Sitting and walking is ok, standing is the worst. Was trying some exercises at home for his back, but noted that has having pain in the back so stopped exercises. sleeping has a lot of difficulty, any time turns shoots pain in the hip, front of leg itself so has been sleeping in a recliner and is better. Getting up from recliner also has shooting pain in the hip and buttock Also has tenderness top of thigh, has been there previously, and will swell and get hard but then also resolves. did not start with the ankle bracing Wants to be able to get back jogging Reported Pain Level Pain Score 1: Self Report Additional Pain Score Comments Migue N/T Assessment PT Clinical Summary Pt presents with complaints of LLE, hip, and back pain that began with initiation of ankle brace use . Pt had severe ankle pain prior due to ankle alignment issues which the brace reduced immediately. Alignment of the ankle appears to have caused further realignment of structures up the kinematic chain effecting the trochanteric bursa as well as the sacroiliac and low back. Pt will greatly benefit from physical therapy to address deficits, reduce pain, and improve overall function. Plan of Care Interventions Electrical Stimulation,Gait Training,Hot Pack/Cold Pack,Manual Therapy,Mechanical Traction,Neuro Re- education,Patient/Caregiver Education,Therapeutic Activities,Therapeutic Exercise,Self-Care/Home Management,Ultrasound,Other Other Interventions Taping, bracing PT Services Indicated Yes Treatment Frequency and 1-3 x weekly x 20 visits Duration These treatments will address the objective and functional deficits as defined above. The patient will be advanced safely and appropriately in order for the patient to progress towards his/her prior level of function. Additional exercises will be introduced and as well as a comprehensive home exercise program upon discharge, if needed, ?to ensure carryover of functional gains achieved in the clinic. This treatment plan has been reviewed and agreement upon by the patient.
--- NOTE | 2024-10-07 09:37 | PTOPPROG ---
Assessment and note entered by Roxana Plata, PT Evaluation Information Assessment Status Progress Diagnosis radiculopathy lumbar region ICD-10 Condition Codes (PT) Radiculopathy, lumbar region M54.16,Pain in left hip M25.552,Difficulty Walking R26.2,Abnormalities of gait and mobility R26.9 Subjective Information Pt reports is now able to walk 3/4 of a mile and can jog the last 20 ft or so. States is also able to bend over and touch the floor again, not palms flat yet. Can sleep fine in bed a few hours, but will end up on the wrong side and will have to wake up and go back to the chair. Has always slept on the left side and now can't sleep on that side. Is now able to stand it's not a problem Getting up from recliner shooting pain is resolved . Self-perceived improvement: 95% If has discomfort is only in the lower leg after walking for a long time and is more of a tired kind of thing. Left fornt of thigh pain is resolved as well. Assessment PT Clinical Summary Pt has attended therapy consistently for L hip and leg pain. He reports feeling greatly improved, reporting feeling 95% back to normal. States he has been able to return to walking 3/4 a mile with a small jog at the end of this. His gait pattern has improved greatly showing equal and long steps, equal stance time on each LE, and smooth motion without guarding. Pt will be going on vacation and doing a lot of walking, and has been advised to test his abilities with this and report back to therapy. Should he feel he has increased pain again, or has difficulty he may return to therapy. He has also been educated in other aspects of therapy phase two of his plan of care would address including increasing ROM lumbar spine, LEs , hip extension and posture in gait, and strengthening. Pt reports if he can do it independently he would like to try that. Thus patient's POC will be left open until he returns from vacation and he will call to either schedule or request discharge at that time. Plan of Care Interventions Electrical Stimulation,Gait Training,Hot Pack/Cold Pack,Manual Therapy,Mechanical Traction,Neuro Re- education,Patient/Caregiver Education,Therapeutic Activities,Therapeutic Exercise,Self-Care/Home Management,Ultrasound,Other Other Interventions Taping, bracing PT Services Indicated Yes Treatment Frequency and Cont remainder of POC 1-2x weekly x 10 visits Duration These treatments will address the objective and functional deficits as defined above. The patient will be advanced safely and appropriately in order for the patient to progress towards his/her prior level of function. Additional exercises will be introduced and as well as a comprehensive home exercise program upon discharge, if needed, ?to ensure carryover of functional gains achieved in the clinic. This treatment plan has been reviewed and agreement upon by the patient.
--- NOTE | 2024-10-07 09:38 | OPREHPOC ---
Outpatient Therapy Plan of Care This is a Multidisciplinary Plan of Care that may contain components documented by all disciplines (PT, OT, and ST.) PT Problem 1 PT Problem #1 Knowledge Deficit PT Goal 1 Goal / Goal Update Pt will be independent in HEP Pt will verbalize understanding of diagnosis and prognosis Target Visit 10 Progress Met PT Problem 2 PT Problem #2 Pain PT Goal 1 Goal / Goal Update Pt will report greatest pain level at 3/10 or less to improve ADLs and activities Target Visit 10 Progress Met PT Goal 2 Goal / Goal Update Pt will report resolution of pain to return to PLOF - leg and hip pain fully resolved. Lower leg pain very minimal 1/10 at worst Target Visit 20 Progress Partially Met PT Problem 3 PT Problem #3 Impaired Gait PT Goal 1 Goal / Goal Update Pt will demonstrates equal stance time and step length during ambulation without guarding Target Visit 10 Progress Met PT Goal 2 Goal / Goal Update Pt will demonstrate improved erect posture in standing and walking to offload discomfort in the spine Progress Partially Met PT Problem 4 PT Problem #4 Impaired Flexibility PT Goal 1 Goal / Goal Update Pt will demonstrate increased hip flexor flexibility to allow erect posture in activities without back pain Target Visit 20
--- NOTE | 2024-11-11 11:42 | PTOPDC ---
Assessment and note entered by Roxana Plata, PT Evaluation Information Assessment Status Discharge - Pt Not Present Diagnosis radiculopathy lumbar region ICD-10 Condition Codes (PT) Radiculopathy, lumbar region M54.16,Pain in left hip M25.552,Difficulty Walking R26.2,Abnormalities of gait and mobility R26.9 Assessment PT Clinical Summary At patient's last reevaluation he reported feeling 95% improved overall, had gotten back to his walking and even started jogging. He also was able to go on vacation to [id number] and did well without flare ups. Thus patient is being discharged at this time for completion of plan of care. Plan of Care PT Services Indicated No
== END 2024-11-13 08:42 | disposition home or self-care (01) ==
LOC: ANHHIPT 08:45
PROVIDERS: PCP Physician Assistant Medical; Visit Provider Physician Assistant Medical
DX: M54.16 Radiculopathy, lumbar region (principal)
CPT/HCPCS: 97014; 97110; 97140; 97162; G0283

== ENCOUNTER 2024-11-04 10:10 | Outpatient (CLI) | payer MEDICARE, OTHER, SELFPAY ==
--- NOTE | ~2024-11-04 | XR_ITS ---
EXAM/PROCEDURE: XR abdomen/kub 1V - 11/04/2024 10:20 CDT HISTORY: 68 years old Male with lt ureteral stone, F/U SURGERY COMPARISON: None available. TECHNIQUE: AP view(s) of the abdomen. FINDINGS: The bowel gas pattern is normal. There is no evidence for obstruction. No free intraperitoneal air is identified on this supine radiograph. The visualized soft tissue shadows are unremarkable. Multi joint degenerative changes. Visualized portions of lung bases are clear. IMPRESSION: No acute process. Specifically no large radiopaque calculus seen. Reviewed, dictated and finalized at location A.
--- OUTSIDE RECORDS SUMMARY | 2024-11-04 11:07 | XMS_ITS | Encounter Summary ---
Author Organization [facility] Healthcare Address [address] [place] [address] Care Team Providers Care Admissions Supervisor Name Role Phone Luisito Bolton MD Primary Care Provider Luisito Bolton MD Primary Care Provider [phone] Olesya Molina Primary Care Provider + [phone] Encounter Details Date Type Department Care Team (Late st Contact Info) Description 05/20/2017 Orders Only [facility] Health Information Management [address] [place] [id number] Scanning, Provider Social History Tobacco Use Types Packs/Day Years Used Date Smoking Tobacco: Never Assessed Sex and Gender Information Value Date Recorded Sex Assigned at Not on file 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 Gender Identity Not on file Sexual Orientation Not on file documented as of this encounter Plan of Treatment Not on file documented as of this encounter Procedures Procedure Name Priority Date/Time Associated Diagnosis Comments SCAN - LABS 05/20/2017 documented in this encounter Results * SCAN - LABS (05/20/2017) Provider Scanning Final Result documented in this encounter Visit Diagnoses Not on filedocumented in this encounter Care Teams Admissions Supervisor Relationship Specialty Start Date End Date Luisito Bolton MD [address] [place], [place] [phone] PCP - General Internal Medicine 05/22/17 07/14/24 Luisito Bolton MD [address] [place] [id number] PCP - General Internal Medicine 03/20/17 05/21/17 Olesya Molina PA [address] [place] [id number] PCP - General Physician Medical Assistant Per Diem 07/15/24 documented as of this encounter
--- OUTSIDE RECORDS SUMMARY | 2024-11-04 11:08 | XMS_ITS | Clinical Summary ---
Author Organization [facility] [address] Address [address] [place] [address] Care Team Providers Care Face Hardener Name Role Phone Olesya Molina Primary Care Provider [phone] Allergies No known active allergies Medications aspirin [...] capsule (20 mg total) by mouth daily 9 Active OZEMPIC 1 mg/dose (2 mg/1.5 mL) pen injector once a week 9 Active L. gasseri-B. bifidum-B longum 1.5 billion cell capsule Take 1 capsule by mouth daily Active nitroglycerin (NITROSTAT) 0.[address] 1 tablet (0.4 mg total) under the tongue every 5 (five) minutes as needed for chest pain May repeat dose q 5 min, up to 3 doses total 25 tablet 3 0 Active atorvastatin (LIPITOR) 40 mg tablet Take 1 tablet (40 mg total) by mouth daily 90 tablet 1 0 Active nitroglycerin (NITROSTAT) 0.[address] 1 tablet (0.4 mg total) under the tongue every 5 (five) minutes as needed for chest pain May repeat dose q 5 min, up to 3 doses total 30 tablet 2 2 Active cyclobenzaprine (FLEXERIL) 5 mg tablet TAKE 1/2 - 2 TABLETS BY MOUTH EVERY DAY AT BEDTIME NEEDED FOR MUSCLE SPASMS 4 Active celecoxib (CeleBREX) 200 mg capsule Take 1 capsule (200 mg total) by mouth daily 4 Active glimepiride (AMARYL) 1 mg tablet TAKE 1 TABLET BY MOUTH TWICE A DAY ADMINISTER WITH FOOD 5 Active pregabalin (LYRICA) 50 mg capsule Active Active Problems Problem Noted Date Diagnosed Date S/P drug eluting coronary stent placement 2023 Skin rash 10/25/2017 Candidal skin infection 10/25/2017 Diabetes mellitus type 2 in obese 06/05/[address] elevation myocardial infarction (S PACO) 06/05/2017 Coronary artery disease invo lving [place] coronary artery of [place] heart without angina pectoris 06/05/2017 Encounters Date Type Department Care Team Description 10/21/2024 10:30 AM CDT Office Visit [facility] Orthopaedic Surgery [address] [place] [address] Medical Office Building [address] [place] [address] Javier Ruvalcaba MD Right hip pain (Primary Dx) 10/21/2024 9:12 AM CDT - 10/21/2024 11:59 PM CDT Hospital Encounter [id number] [address] [place] [address] [address] [place] [address] Right hip pain Discharge Disposition: Discharge to home or self care 08/27/2024 Telephone [facility] Orthopaedic Surgery [address] [facility] 2nd Floor [address] [place] [address] Haydee Kat RN 08/13/2024 7:53 AM CDT - 08/13/2024 11:59 PM CDT Hospital Encounter [id number] [address] [place] [address] [address] [place] [address] Miesha Penny MD Chronic pain of left ankle (Primary Dx) Discharge Disposition: Discharge to home or self care 08/08/2024 Telephone Radiology - [address] [facility] [address] [place] [address] Tiffany Padilla RT 08/07/2024 Telephone [facility] Orthopaedic Surgery [address] [facility] Medical Office Building [address] [place] [address] Trinidad Tripathi CMA from Last 3 Months Immunizations Immunization Administration Dates Next Due Influenza, Quadrivalent, Rec ombinant, Egg Free, Preservative Free, Intramuscular 11/27/2019,12/26/2018 Influenza, Quadrivalent, Spl it, Preservative Free, Intramuscular 11/25/2017,05/27/2017 Influenza, Trivalent, IM (MDV) 02/27/2012 Pneumococcal Polysaccharide PPV23 08/19/2017 ZOSTER Recombinant 10/16/2017,07/19/2017 Surgical History Surgery Date Site/Laterality Comments CORONARY ANGIOPLASTY APPENDECTOMY KNEE ARTHROSCOPY meniscus repair LAPAROSCOPIC LYSIS INTESTINAL ADHESIONS FLUORO GUIDED INJECTION ANKLE LEFT 08/13/2024 Left VASECTOMY 1988 Medical History Medical History Date Comments Heart attack (HCC) Diabetes mellitus (HCC) Sleep apnea Arthritis Heart disease 2018 Kidney stone Family History Medical History Relation Name Comments [...] drink = 0.6 oz pur e alcohol) Sex and Gender Information Value Date Recorded Sex Assigned at Not on file 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 Gender Identity Not on file Sexual Orientation Not on file Obstetrics History Last Filed Vital Signs Vital Sign Reading Time Taken Comments Blood Pressure 128/80 07/13/2023 8:02 AM CDT Pulse 90 07/13/2023 8:02 AM CDT Temperature 36.7 C (98.1 F) 10/25/2017 2:18 PM CDT Respiratory Rate - - Oxygen Saturation 97% 07/13/2023 8:02 AM CDT Inhaled Oxygen Concentration - - Weight 96.2 kg (212 lb) 10/21/2024 9:26 AM CDT Height 168.9 cm (5' 6.5) 10/21/2024 9:26 AM CDT Body Mass Index 33.71 10/21/2024 9:26 AM CDT Plan of Treatment Health Maintenance [...] 03/26/2020, Additional history exists Influenza Vaccine (#1) 2024 , 12/26/2018, 11/25/2017, Additional history exists Zoster Vaccine Completed 10/16/2017, 07/19/2017 Procedures Procedure Name Priority Date/Time Associated Diagnosis Comments XR HIP RIGHT W PELVIS 2 OR 3 VIEWS Schedule Routine, Read Routine (OP Routine) 10/21/2024 9:18 AM CDT Right hip pain FLUORO GUIDED INJECTION ANKLE LEFT Schedule Routine, Read Routine (OP Routine) 08/13/2024 8:14 AM CDT Chronic pain of left ankle POCT LIPID PANEL Routine 06/28/2022 2:58 PM CDT Lipid screening from Last 3 Months or Most Recently Relevant to Health Maintenance Results * XR Hip Right 2 or 3 Views W Pelvis (10/21/2024 9:18 AM CDT) Anatomical Region Laterality Modality Lower Extremities, Hip, Pelvis Right C omputed Radiography 10/21/2024 10:3 9 AM CDT Impressions 10/21/2024 11:10 AM CDT 1. Moderate right hip osteoarthritis. Dictated by: Robin Macario MD The radiology attending physician has personally reviewed this study, and had reviewed and/or edited this written report and agrees with it. Electronically signed by: Tim Damian M.D. Narrative 10/21/2024 11:10 AM CDT EXAMINATION: XR HIP RIGHT 2 OR 3 VIEWS W PELVIS HISTORY: Right hip pain FINDINGS: No examinations are available for comparison. No acute fracture or dislocation. Moderate right hip osteoarthritis. There is right acetabular labral ossification with lateral acetabular over coverage. Alignment is normal. Procedure Note Tim Damian MD - 10/21/2024 EXAMINATION: XR HIP RIGHT 2 OR 3 VIEWS W PELVIS HISTORY: Right hip pain FINDINGS: No examinations are available for comparison. No acute fracture or dislocation. Moderate right hip osteoarthritis. There is right acetabular labral ossification with lateral acetabular over coverage. Alignment is normal. IMPRESSION: 1. Moderate right hip osteoarthritis. Dictated by: Robin Macario MD The radiology attending physician has personally reviewed this study, and had reviewed and/or edited this written report and agrees with it. Electronically signed by: Tim Damian M.D. Javier Ruvalcaba MD IMG XR PROCEDURES Final Resul t * FL Fluoro Guided Injection Ankle Left (08/13/2024 8:14 AM CDT) Narrative [facility] - 08/13/2024 8:14 AM CDT The images from this study are not interpreted by Radiology. Please refer to the physician's procedure / OR operative note. Mercy Recio NP IMG FLUOROSCOPY PROCEDURES Fin al Result [facility] * POCT lipid panel (06/28/2022 2:58 PM [...] Recently Relevant to Health Maintenance [place] [address] [facility] MEDICARE MEDICARE [place] Care Teams Face Hardener Relationship Specialty Start Date End Date Olesya Molina PA [address] [place] [address] PCP - General Physician Taxicab Starter 07/15/24
== END 2024-11-04 10:11 | disposition home or self-care (01) ==
PROVIDERS: PCP Physician Assistant Medical; Visit Provider Urology
DX: N20.1 Calculus of ureter (principal)
CPT/HCPCS: 74018